=== PATIENT | male | born 1995 | race Caucasian/White ===

== ENCOUNTER 2018-01-14 21:06 | Emergency (ER) | payer OTHER ==
[~2018-01-14] VITALS: Ht 177.8 cm; Wt 83.9 kg
[2018-01-14] MEDS ORDERED: meTOprolol TARTRATE 25 MG (LOPRESSOR) TABLET PO ONE (21:30)
--- NOTE | 2018-01-14 21:34 | ED EENT ---
History of Present Illness General Chief Complaint: Facial Problems Stated Complaint: HEAD PAIN;RIGHT SIDE FACE NUMBNESS Nursing Triage Note: PT REPORTS FACIAL PAIN AND NUMBNESS FOR 3 DAYS. Source: patient Exam Limitations: no limitations History of Present Illness Date Seen by Provider: Jan 14, 2018 Time Seen by Provider: 21:31 Initial Comments To ER with right-sided facial pain and numbness for 3 days. He does not notice any drooping or weakness of the right side of his face. The pain is always there but occasionally gets worse and he describes it as a throbbing sensation that is occasionally sharp. Pain affects the forehead, cheek, and jaw. No known cause. He believes this might be secondary to a tooth problem though he does not have any certain tooth that seems to be bothering him. He states that he does have a history of migraines couple of months. Each and every migraine he states that he has scalp pain and it is tender to touch as well as facial pain with the face being tender to touch. He states that it varies from one side of the face to the other one side of the scalp he did wake up about 2 months ago in the middle of the night with sharp severe left-sided scalp pain, he awakened for a few minutes held firm pressure over this area with his hand and the pain resolved. Timing/Duration: other Severity: moderate Location: facial Associated Symptoms: No drooling, No ear drainage, facial pain/swelling (pain but no swelling) Allergies and Home Medications Allergies Coded Allergies: tree nut (Unverified Allergy, Unknown, 01/14/18) Patient Home Medication List Home Medication List Reviewed: Yes Review of Systems Constitutional: see HPI Eyes: No Symptoms Reported Ears: No Symptoms Reported Nose: no symptoms reported Mouth: no symptoms reported Throat: no symptoms reported Respiratory: no symptoms reported Cardiovascular: no symptoms reported Musculoskeletal: no symptoms reported Past Uxyerra-Wnuvhb-Mqwinp Hx Patient Social History Recent Foreign Travel: No Contact w/Someone Who Travel: No Recent Infectious Disease Expo: No Recent Hopitalizations: No Seasonal Allergies Seasonal Allergies: No Surgeries History of Surgeries: No Respiratory History of Respiratory Disorde: No Cardiovascular History of Cardiac Disorders: Yes Cardiac Disorders: Hypertension Neurological History of Neurological Disord: No Genitourinary History of Genitourinary Disor: No Gastrointestinal History of Gastrointestinal Di: No Musculoskeletal History of Musculoskeletal Dis: No Endocrine History of Endocrine Disorders: No HEENT History of HEENT Disorders: No Cancer History of Cancer: No Psychosocial History of Psychiatric Problem: No Integumentary History of Skin or Integumenta: No Blood Transfusions History of Blood Disorders: No Adverse Reaction to a Blood Tr: No Physical Exam Vital Signs Vital Signs - First Documented 01/14/18 21:23 Temp 98.0 Pulse 119 Resp 18 B/P (MAP) 150/82 (104) Pulse Ox 96 O2 Delivery Room Air General Appearance: WD/WN, no apparent distress Eyes: bilateral eye normal inspection, bilateral eye PERRL, bilateral eye EOMI Ears: bilateral ear auricle normal, bilateral ear canal normal, bilateral ear TM normal Mouth/Throat: other (multilpe teeth in a poor state of affairs with multiple caries. ) Neck: non-tender, full range of motion Respiratory: normal breath sounds, no respiratory distress, no accessory muscle use Gastrointestinal: normal bowel sounds, non tender, soft Neurologic/Psychiatric: alert, normal mood/affect, oriented x 3 Skin: normal color, warm/dry The right side of the face is tender to palpation, there is no rash, ulcers or vesicles. No erythema or edema. There is no tenderness to the maxillary gingiva or mandibular gingiva on the right. Entire HEENT exam is normal. Progress/Results/Core Measures Results/Orders Lab Results Laboratory Tests Test 01/14/18 21:29 Range/Units White Blood Count 11.5 H 4.3-11.0 10^3/uL Red Blood Count 4.97 4.35-5.85 10^6/uL Hemoglobin 15.7 13.3-17.7 G/DL Hematocrit 44 40-54 % Mean Corpuscular Volume 89 80-99 FL Mean Corpuscular Hemoglobin 32 25-34 PG Mean Corpuscular Hemoglobin Concent 35 32-36 G/DL Red Cell Distribution Width 12.8 10.0-14.5 % Platelet Count 326 130-400 10^3/uL Mean Platelet Volume 10.3 7.4-10.4 FL Neutrophils (%) (Auto) 54 42-75 % Lymphocytes (%) (Auto) 38 12-44 % Monocytes (%) (Auto) 6 0-12 % Eosinophils (%) (Auto) 1 0-10 % Basophils (%) (Auto) 1 0-10 % Neutrophils # (Auto) 6.2 1.8-7.8 X 10^3 Lymphocytes # (Auto) 4.4 H 1.0-4.0 X 10^3 Monocytes # (Auto) 0.7 0.0-1.0 X 10^3 Eosinophils # (Auto) 0.2 0.0-0.3 10^3/uL Basophils # (Auto) 0.1 0.0-0.1 10^3/uL Sodium Level 139 135-145 MMOL/L Potassium Level 4.2 3.6-5.0 MMOL/L Chloride Level 106 98-107 MMOL/L Carbon Dioxide Level 21 21-32 MMOL/L Anion Gap 12 5-14 MMOL/L Blood Urea Nitrogen 15 7-18 MG/DL Creatinine 1.02 0.60-1.30 MG/DL Estimat Glomerular Filtration Rate > 60 BUN/Creatinine Ratio 15 Glucose Level 110 H 70-105 MG/DL Calcium Level 9.6 8.5-10.1 MG/DL Total Bilirubin 0.6 0.1-1.0 MG/DL Aspartate Amino Transf (AST/SGOT) 26 5-34 U/L Alanine Aminotransferase (ALT/SGPT) 42 0-55 U/L Alkaline Phosphatase 104 40-136 U/L Total Protein 7.9 6.4-8.2 GM/DL Albumin 4.3 3.2-4.5 GM/DL My Orders Orders - JULIO CESAR BERNARDO APRN Ct Head Wo (01/14/18 21:30) Cbc With Automated Diff (01/14/18 21:30) Comprehensive Metabolic Panel (01/14/18 21:30) Metoprolol Tartrate (Ir) Tab (Lopressor (01/14/18 21:30) Ibuprofen Tablet (Motrin Tablet) (01/14/18 22:00) Medications Given in ED Current Medications Medications Dose Ordered Sig/Jennifer Route Start Time Stop Time Status Last Admin Dose Admin Metoprolol Tartrate 25 mg ONCE ONCE PO 01/14/18 21:30 01/14/18 21:31 DC 01/14/18 21:46 25 MG Vital Signs/I&O Vital Sign - Last 12Hours 01/14/18 21:23 Temp 98.0 Pulse 119 Resp 18 B/P (MAP) 150/82 (104) Pulse Ox 96 O2 Delivery Room Air Blood Pressure Mean: 104 Departure Communication (Admissions) Family Conversation I discussed with him this could be an atypical migraine given his history versus something like trigeminal neuralgia. I'll give him a short course of Ultram and discharged to home with outpatient follow-up. Progress Notes NAME: MIRTA SPARKS [facility] REC#: [id number] PT STATUS: REG ER : 1995 PHYSICIAN: JULIO CESAR BERNARDO APRN ADMIT DATE: 01/14/18/ER Draft Date of Exam:01/14/18 CT HEAD WO Clinical indication: Patient reports facial pain and numbness on the right side for 3 days. Exam: Axial CT scan of the brain performed without IV contrast. Comparison: None. Findings: There is no evidence of acute cerebral infarct, intracranial hemorrhage, or gross mass effect. The brain parenchymal volume appears appropriate for patient's age. There is normal moses-white matter distinction. There is no significant midline shift or herniation. There is no evidence of hydrocephalus. The basal cisterns are unremarkable. The skull, extracranial soft tissue, and orbits are unremarkable. There is mild mucosal thickening involving left maxillary sinus, ethmoid sinus, and frontal sinus. Temporal bones show no significant abnormality. Impression: Mild paranasal sinus disease. Otherwise unremarkable CT scan of the brain. Dictated on workstation # [id number] Dict: 01/14/18 2146 Trans: 01/14/18 215 [facility] [id number] Interpreted by: ALDEN WOLFE MD Electronically signed by: Impression Impression: Primary Impression: Hypertension Additional Impressions: Tachycardia Right sided facial pain Disposition: 01 HOME, SELF-CARE Condition: Stable Departure-Patient Inst. Decision time for Depature: 21:59 Referrals: NO,LOCAL PHYSICIAN (PCP) Primary Care Physician Patient Instructions: NO INSTRUCTIONS GIVEN Add. Discharge Instructions: 1. Follow-up with your doctor within 48 hours (call tomorrow at 8 am to make an appointment) to discuss treatment of your high blood pressure and for further evaluation of this facial pain. That workup may include an MRI of the brain. 2. Return to ER for any worsening symptoms 3. All discharge instructions reviewed with patient and/or family. Voiced understanding. Work/School Note: [employer] JULIO CESAR BERNARDO APRN Jan 14, 2018 21:34
[2018-01-14 21:37] LABS: BASOPHILS # (AUTO) 0.1 10^3/uL (0.0-0.1); BASOPHILS % (AUTO) 1 % (0-10); EOSINOPHILS # (AUTO) 0.2 10^3/uL (0.0-0.3); EOSINOPHILS % (AUTO) 1 % (0-10); HEMATOCRIT 44 % (40-54); HEMOGLOBIN 15.7 G/DL (13.3-17.7); LYMPHOCYTES # (AUTO) 4.4 X 10^3 (1.0-4.0); LYMPHOCYTES % (AUTO) 38 % (12-44); MEAN CORPUSCULAR HEMOGLOBIN 32 PG (25-34); MEAN CORPUSCULAR HGB CONC 35 G/DL (32-36); MEAN CORPUSCULAR VOLUME 89 FL (80-99); MEAN PLATELET VOLUME 10.3 FL (7.4-10.4); MONOCYTES # (AUTO) 0.7 X 10^3 (0.0-1.0); MONOCYTES % (AUTO) 6 % (0-12); NEUTROPHILS # (AUTO) 6.2 X 10^3 (1.8-7.8); NEUTROPHILS % (AUTO) 54 % (42-75); PLATELET COUNT 326 10^3/uL (130-400); RED BLOOD COUNT 4.97 10^6/uL (4.35-5.85); RED CELL DISTRIBUTION WIDTH 12.8 % (10.0-14.5); WHITE BLOOD COUNT 11.5 10^3/uL (4.3-11.0)
--- NOTE | 2018-01-14 21:51 | Diagnostic Imaging Report ---
Clinical indication: Patient reports facial pain and numbness on the right side for 3 days. Exam: Axial CT scan of the brain performed without IV contrast. Comparison: None. Findings: There is no evidence of acute cerebral infarct, intracranial hemorrhage, or gross mass effect. The brain parenchymal volume appears appropriate for patient's age. There is normal moses-white matter distinction. There is no significant midline shift or herniation. There is no evidence of hydrocephalus. The basal cisterns are unremarkable. The skull, extracranial soft tissue, and orbits are unremarkable. There is mild mucosal thickening involving left maxillary sinus, ethmoid sinus, and frontal sinus. Temporal bones show no significant abnormality. Impression: Mild paranasal sinus disease. Otherwise unremarkable CT scan of the brain. Dictated by: Dictated on workstation # [id number]
[2018-01-14 21:54] LABS: ALANINE AMINOTRANSFERASE 42 U/L (0-55); ALBUMIN 4.3 GM/DL (3.2-4.5); ALKALINE PHOSPHATASE 104 U/L (40-136); BILIRUBIN,TOTAL 0.6 MG/DL (0.1-1.0); BUN/CREATININE RATIO 15; CALCIUM 9.6 MG/DL (8.5-10.1); CARBON DIOXIDE 21 MMOL/L (21-32); CHLORIDE 106 MMOL/L (98-107); CREATININE SERUM 1.02 MG/DL (0.60-1.30); GFR ESTIMATED > 60; GLUCOSE 110 MG/DL (70-105); POTASSIUM 4.2 MMOL/L (3.6-5.0); SODIUM 139 MMOL/L (135-145); TOTAL PROTEIN 7.9 GM/DL (6.4-8.2)
[2018-01-14] MEDS ORDERED: IBUPROFEN 800 MG (MOTRIN) TAB PO ONE (22:00)
[2018-01-14] MEDS ORDERED: RX-TRAMADOL 50 MG (ULTRAM) TAB PPK#4 PO STA (22:31)
[2018-01-14 22:40] VITALS: BP 143/83
== END 2018-01-14 22:40 | disposition home or self-care (01) ==
LOC: ER 21:09
DX: R51 Headache (principal); R00.0 Tachycardia, unspecified; I10 Essential (primary) hypertension
CPT/HCPCS: 36415; 70450; 80053; 85025

== ENCOUNTER 2018-01-26 23:20 | Emergency (ER) | payer OTHER ==
[~2018-01-26] VITALS: Ht 177.8 cm; Wt 83.9 kg
[2018-01-27] MEDS ORDERED: ORPHENADRINE 60 MG/2 ML (NORFLEX) AMP IM STA (01:23)
[2018-01-27] MEDS ORDERED: KETOROLAC 60 MG/2 ML VIAL IM STA (01:23)
[2018-01-27] MEDS ORDERED: METO-352 PO (01:28)
--- NOTE | 2018-01-27 01:28 | ED Headache ---
General Chief Complaint: Head/Cervical Problems Stated Complaint: ZAVALETA X 2WKS Nursing Sepsis Screen: No Definite Risk Source: patient, old records History of Present Illness Date Seen by Provider: Jan 27, 2018 Time Seen by Provider: 01:00 Initial Comments PT ARRIVES VIA POV C/O "HEADACHE-MIGRAINE" X 2 WEEKS PAIN IS IN RIGHT MUSLIM AND RADIATES TO FOREHEAD AND RIGHT OCCIPITAL AREA. OCCASIONALLY IT IS ON TOP OF HEAD WELL NOTHING WORSENS OR IMPROVES PAIN NO VISION CHANGES--PT WEARS GLASSES, BUT HAS NOT SEEN EYE DR IN YEARS NO FEVER NO RECENT ILLNESS/URI/SINUS SYMPTOMS NO NECK PAIN OR STIFFNESS OCCASIONALLY GETS SLIGHTLY NAUSEATED AND DIZZY FOR A FEW SECONDS AND GOES AWAY-- NO SYMPTOMS NOW PT SEEN HERE 01/14/18 FOR THIS SAME COMPLAINT. AT THAT TIME HE STATED HIS HEADACHE HAD BEEN GOING ON FOR A COUPLE OF MONTHS AND HAD RIGHT FACIAL PAIN X [address] HEAD WERE DOWN AND WERE UNREMARKABLE EXCEPT FOR MINIMAL SINUS DISEASE. BP WAS 150/82 AT THAT TIME--WAS GIVEN A DOSE OF METOPROLOL IN ER PT WAS GIVEN MOTRIN IN ER AND A TAKE HOME PACK OF ULTRAM--STATES IT HELPED ALOT , HAS NOT HAD ANY IN A WEEK HAS NOT TAKEN ANYTHING ELSE FOR PAIN AT ANY TIME. STATES "MY SISTER AND MOTHER AND HER DAD AND HER GRANDPA ALL LIVE WITH THIS SAME THING" HAS NOT ATTEMPTED TO SEEK CARE FOR THIS PROBLEM UNTIL THESE 2 VISITS. 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 PT SELF DC'D THEM IN 2016, AFTER ONLY TAKING THEM A FEW MONTHS. PT HAS NOT SEEN A DR FOR BLOOD PRESSURE SINCE THEN PLANS ON ESTABLISHING AT [facility] Allergies and Home Medications Allergies Coded Allergies: tree nut (Unverified Allergy, Unknown, 01/14/18) Home Medications Metoprolol Succinate 50 Mg Tab.er.24h, 50 MG PO DAILY Prescribed by: MESSI MCFARLANE on 01/27/18 0128 Patient Home Medication List Home Medication List Reviewed: Yes Constitutional: see HPI Eyes: No Symptoms Reported Ears, Nose, Mouth, Throat: no symptoms reported Respiratory: no symptoms reported Cardiovascular: no symptoms reported Gastrointestinal: see HPI Genitourinary: no symptoms reported Musculoskeletal: no symptoms reported Skin: no symptoms reported Psychiatric/Neurological: See HPI Past Hzzjcbs-Neogzt-Tmjohi Hx Patient Social History Alcohol Use: Denies Use Recreational Drug Use: No Smoking Status: Never a Smoker Recent Foreign Travel: No Contact w/Someone Who Travel: No Recent Infectious Disease Expo: No Recent Hopitalizations: No Physical Abuse: No Sexual Abuse: No Seasonal Allergies Seasonal Allergies: No Surgeries History of Surgeries: No Respiratory History of Respiratory Disorde: No Cardiovascular History of Cardiac Disorders: Yes (DX AGE 20, SELF DC'D MEDICATIONS 2016, AFTER ONLY TAKING THEM FOR A SHORT PERIOD OF TIME. ) Cardiac Disorders: Hypertension Neurological History of Neurological Disord: No Genitourinary History of Genitourinary Disor: No Gastrointestinal History of Gastrointestinal Di: No Musculoskeletal History of Musculoskeletal Dis: No Endocrine History of Endocrine Disorders: No HEENT History of HEENT Disorders: No Cancer History of Cancer: No Psychosocial History of Psychiatric Problem: No Suicide Risk Score: 0 Integumentary History of Skin or Integumenta: No Blood Transfusions History of Blood Disorders: No Adverse Reaction to a Blood Tr: No Physical Exam Vital Signs Vital Signs - First Documented 01/27/18 00:33 Temp 98.2 Pulse 94 Resp 18 B/P (MAP) 155/88 (110) Pulse Ox 96 Capillary Refill : Less Than 3 Seconds General Appearance: no apparent distress, obese, other (MALODOROUS) HEENT: PERRL/EOMI, normal ENT inspection, TMs normal, pharynx normal, other ( NO FACIAL OR SINUS OR TEMPORAL ARTERY TENDERNESS. NO TMJ TENDERNESS. NO TRISMUS) Neck: non-tender, full range of motion, supple, normal inspection Cardiovascular: normal peripheral pulses, regular rate, rhythm, no edema, no JVD, no murmur Respiratory: normal breath sounds, no respiratory distress, no accessory muscle use Gastrointestinal: soft Back: normal inspection Extremities: normal range of motion, non-tender, normal inspection, no pedal edema, no calf tenderness, normal capillary refill, other (DTR'S INTACT IN ALL EXTREMITIES) Psychiatric: alert, oriented x 3 Crainal Nerves: normal hearing, normal speech, PERRL Coordination/Gait: normal gait Motor/Sensory: no motor deficit, no sensory deficit Reflexes: 2+ Bicep (R), 2+ Bicep (L), 2+ Knee (R), 2+ Knee (L) Skin: normal color, warm/dry Progress/Results/Core Measures Results/Orders My Orders Orders - MESSI MCFARLANE DO Ketorolac Injection (Toradol Injection) (01/27/18 01:23) Metoprolol Succinate (Xl) Tab (Toprol Xl (01/27/18 01:30) Orphenadrine Injection (Norflex Injectio (01/27/18 01:23) Vital Signs/I&O Vital Sign - Last 12Hours 01/27/18 01/27/18 01/27/18 01/27/18 00:33 02:09 02:10 02:30 Temp 98.2 98.2 98.2 Pulse 94 92 Resp 18 18 B/P (MAP) 155/88 (110) 144/81 Pulse Ox 96 99 Blood Pressure Mean: 110 Progress Note : Progress Note SYMPTOMS IMPROVED AND BP DOWN AT DISMISSAL Departure Impression Impression: Primary Impression: Right-sided headache Additional Impression: HTN (hypertension) Disposition: 01 HOME, SELF-CARE Condition: Improved Departure-Patient Inst. Referrals: [facility] Patient Instructions: Controlling Your Blood Pressure Through Lifestyle, Headache, Adult (DC), High Blood Pressure (DC) Add. Discharge Instructions: LOW SODIUM DIET--LESS THAN 2 GRAMS OF SODIUM A DAY TYLENOL AND MOTRIN NEEDED FOR HEADACHE FOLLOW UP WITH [facility] THIS WEEK FOR FURTHER CARE All discharge instructions reviewed with patient and/or family. Voiced understanding. Scripts Metoprolol Succinate (Toprol Xl) 50 Mg Tab.er.24h 50 MG PO DAILY, #10 TAB Prov: MESSI MCFARLANE DO 01/27/18 MESSI MCFARLANE DO Jan 27, 2018 01:28
[2018-01-27] MEDS ORDERED: meTOproloL SUCCINATE 50 MG (TOPROL XL) TAB PO SCH (01:30)
[2018-01-27 02:30] VITALS: BP 144/81
== END 2018-01-27 02:30 | disposition home or self-care (01) ==
LOC: EDUNIT# 23:20 → ER 23:22
DX: R51 Headache (principal); I10 Essential (primary) hypertension
CPT/HCPCS: 96372; 99284

== ENCOUNTER 2018-04-22 18:28 | Inpatient (IN) | payer OTHER ==
[~2018-04-22] VITALS: Ht 177.8 cm; Wt 148.0 kg
[~2018-04-22 18:28] MED LIST: METO-352 PO
[2018-04-22] MEDS ORDERED: NS IV 1000 ML 1,000 ML IV ONE (19:16)
[2018-04-22 19:46] LABS: BASOPHILS % (AUTO) 0 % (0-10); EOSINOPHILS % (AUTO) 0 % (0-10); HEMATOCRIT 45 % (40-54); HEMOGLOBIN 15.7 G/DL (13.3-17.7); LYMPHOCYTES # (AUTO) 1.9 X 10^3 (1.0-4.0); LYMPHOCYTES % (AUTO) 12 % (12-44); MEAN CORPUSCULAR HEMOGLOBIN 31 PG (25-34); MEAN CORPUSCULAR HGB CONC 35 G/DL (32-36); MEAN CORPUSCULAR VOLUME 88 FL (80-99); MEAN PLATELET VOLUME 10.5 FL (7.4-10.4); MONOCYTES # (AUTO) 1.1 X 10^3 (0.0-1.0); MONOCYTES % (AUTO) 8 % (0-12); NEUTROPHILS # (AUTO) 11.9 X 10^3 (1.8-7.8); NEUTROPHILS % (AUTO) 80 % (42-75); PLATELET COUNT 301 10^3/uL (130-400); RED CELL DISTRIBUTION WIDTH 12.9 % (10.0-14.5)
[2018-04-22 19:52] LABS: BILIRUBIN,URINE NEGATIVE (NEGATIVE); CLARITY,URINE VERY CLOUDY; COLOR,URINE YELLOW; GLUCOSE, URINE (UA) NEGATIVE (NEGATIVE); KETONES,URINE NEGATIVE (NEGATIVE); LEUKOCYTE ESTERASE ,URINE 1+ (NEGATIVE); NITRITE,URINE NEGATIVE (NEGATIVE); PH,URINE 5 (5-9); PROTEIN,URINE 1+ (NEGATIVE); UROBILINOGEN,URINE NORMAL (NORMAL)
[2018-04-22 19:56] LABS: BACTERIA,URINE MODERATE /HPF; RBC,URINE 0-2 /HPF
[2018-04-22 19:56] LABS: PROTHROMBIN TIME PATIENT 13.4 SEC (12.2-14.7)
[2018-04-22 20:04] LABS: ALANINE AMINOTRANSFERASE 37 U/L (0-55); ALBUMIN 4.6 GM/DL (3.2-4.5); ALKALINE PHOSPHATASE 101 U/L (40-136); BUN/CREATININE RATIO 9; CALCIUM 9.5 MG/DL (8.5-10.1); CARBON DIOXIDE 22 MMOL/L (21-32); CHLORIDE 104 MMOL/L (98-107); CREATININE SERUM 1.09 MG/DL (0.60-1.30); GFR ESTIMATED > 60; GLUCOSE 96 MG/DL (70-105); POTASSIUM 4.3 MMOL/L (3.6-5.0); SODIUM 138 MMOL/L (135-145)
[2018-04-22 20:07] LABS: BAND NEUTROPHILS 0 %; BASOPHILS % (MANUAL) 0 %; EOSINOPHILS % (MANUAL) 0 %; LYMPHOCYTES % (MANUAL) 19 %; MONOCYTES % (MANUAL) 5 %; NEUTROPHILS % (MANUAL) 76 %
[2018-04-22 20:08] LABS: RBC MORPH NORMAL
[2018-04-22] MEDS ORDERED: DOXYCYCLINE INJECTION 100 MG in NS (IVPB) 100 ML IV ONE (20:15)
[2018-04-22] MEDS ORDERED: cefTRIAXone INJECTION 1,000 MG in NS (IVPB) 50 ML IV ONE (20:15)
--- NOTE | 2018-04-22 20:18 | Diagnostic Imaging Report ---
INDICATION: Red bumps on hands for about a week. Itching, body pain, back pain, neck pain. EXAMINATION: Chest, 04/22/2018. FINDINGS: Upright portable chest demonstrates no evidence for cardiomegaly. The pulmonary vasculature is unremarkable. There are no infiltrates or effusions. There is no pneumothorax. IMPRESSION: No acute process. Dictated by: Dictated on workstation # [id number]
--- NOTE | 2018-04-22 21:30 | ED General ---
General Chief Complaint: Abdominal/GI Problems Stated Complaint: BUMPS ON HANDS,THROWING UP BLOOD,FREQUENT BOWEL MO Nursing Triage Note: pt states he began having red bumps on his hands about a week ago. bumps were itchy at first, but pt states no longer itchy. pt stated he began v/d this am, and having severe body pain, [place], and upper back and neck pain. pt stated he feels like he can hardly stay awake. pt states he threw up blood at around 1600 today. Nursing Sepsis Screen: Possible Severe Sepsis Risk History of Present Illness Date Seen by Provider: Apr 22, 2018 Time Seen by Provider: 19:15 Initial Comments This 22-year-old young man presents to the emergency room with fever, vomiting, and diarrhea. He has had a few episodes of vomiting and 11 episodes of diarrhea this evening. He feels very drowsy. He is tachycardic and febrile upon presentation. He has headache, upper back pain, and neck stiffness. He has some mild diffuse abdominal discomfort. He also has a circular target-like rash on the hands bilaterally including the palmar aspect. Rash was initially pruritic but is now painful. He denies any known tick bites but states take bites are possible based on outdoor exposure. He states heart rate at home was noted to be 126 before arrival. He also reports having some splotchy red color in his emesis which she thinks might have been blood. Patient notes he has not taken his blood pressure medications in a week because he left them at his cousin's house. He has not been taking any medications for his symptoms. His primary care providers Zachary Fernández at [facility]. Allergies and Home Medications Allergies Coded Allergies: tree nut (Unverified Allergy, Unknown, 01/14/18) Home Medications Metoprolol Succinate 50 Mg Tab.er.24h, 50 MG PO DAILY Prescribed by: MESSI MCFARLANE on 01/27/18 0128 Patient Home Medication List Home Medication List Reviewed: Yes Review of Systems Constitutional: see HPI EENTM: no symptoms reported Respiratory: cough Cardiovascular: chest pain Gastrointestinal: see HPI Genitourinary: see HPI Musculoskeletal: see HPI Skin: see HPI Psychiatric/Neurological: See HPI Hematologic/Lymphatic: No Symptoms Reported Immunological/Allergic: no symptoms reported Past Jbauaen-Fwtcww-Pmgbpr Hx Patient Social History Alcohol Use: Occasionally Uses Recreational Drug Use: No Type Used: Smokeless Tobacco Recent Foreign Travel: No Contact w/Someone Who Travel: No Recent Infectious Disease Expo: No Recent Hopitalizations: No Seasonal Allergies Seasonal Allergies: No Past Medical History Surgeries: No Respiratory: No Cardiac: Yes Hypertension Neurological: No Reproductive Disorders: No Genitourinary: No Gastrointestinal: No Musculoskeletal: No Endocrine: No HEENT: No Cancer: No Psychosocial: No Integumentary: No Blood Disorders: No Adverse Reaction/Blood Tranf: No Physical Exam-Suspected Sepsis Physical Exam Vital Signs Vital Signs - First Documented 04/22/18 04/22/18 19:05 22:37 Temp 101.4 Pulse 128 Resp 20 B/P (MAP) 124/104 (111) Pulse Ox 96 O2 Delivery Room Air Capillary Refill : Less Than 3 Seconds Blood Pressure Mean: 111 General Appearance: WD/WN, Mild Distress HEENT: PERRL/EOMI, Normal ENT Inspection, Pharynx Normal Neck: Full Range of Motion, Normal Inspection, Non Tender, Supple, Other (No nuchal rigidity or tenderness) Respiratory: Lungs Clear, Normal Breath Sounds, No Accessory Muscle Use, No Respiratory Distress Cardiovascular: No Edema, No Murmur, Tachycardia Gastrointestinal: Normal Bowel Sounds, Soft, Tenderness (Minimal, diffuse) Extremity: Normal Inspection, No Pedal Edema Neurologic/Psychiatric: Alert, Oriented x3, No Motor/Sensory Deficits, Normal Mood/Affect, pickle pumper II-XII Norm as Tested Skin: normal color, rash (Subcentimeter target-shaped lesions primarily on the hands. Lesions mark) Focused Exam Lactate Level 04/22/18 19:30: Lactic Acid Level 1.39 Lactic Acid Level Progress/Results/Core Measures Suspected Sepsis Recent Fever Within 48 Hours: Yes Infection Criteria Present: Suspected New Infection New/Unexplained Altered Menta: Yes Sepsis Screen: Possible Severe Sepsis Risk SIRS Temperature:101.4 Pulse: 128 Respiratory Rate: Laboratory Tests 04/22/18 19:30: White Blood Count 15.0H 04/23/18 05:20: White Blood Count 12.8H Blood Pressure 124 /104 Mean: 111 04/22/18 19:30: Lactic Acid Level 1.39 Laboratory Tests 04/22/18 19:30: Creatinine 1.09, INR Comment 1.0, Platelet Count 301, Total Bilirubin 1.0 04/23/18 05:20: Creatinine 0.97, Platelet Count 228, Total Bilirubin 0.9 Results/Orders Lab Results Laboratory Tests Test 04/22/18 19:25 04/22/18 19:30 04/22/18 20:25 04/23/18 05:20 Range/Units Urine Color YELLOW Urine Clarity VERY CLOUDY H Urine pH 5 5-9 Urine Specific [place] 1.020 1.016-1.022 Urine Protein 1+ H NEGATIVE Urine Glucose (UA) NEGATIVE NEGATIVE Urine Ketones NEGATIVE NEGATIVE Urine Nitrite NEGATIVE NEGATIVE Urine Bilirubin NEGATIVE NEGATIVE Urine Urobilinogen NORMAL NORMAL MG/DL Urine Leukocyte Esterase 1+ H NEGATIVE Urine RBC (Auto) 1+ H NEGATIVE Urine RBC 0-2 /HPF Urine WBC 10-25 H /HPF Urine Squamous Epithelial Cells 10-25 H /HPF Urine Crystals NONE /LPF Urine Bacteria MODERATE H /HPF Urine Casts NONE /LPF Urine Mucus MODERATE H /LPF Urine Culture Indicated YES White Blood Count 15.0 H 12.8 H 4.3-11.0 10^3/uL Red Blood Count 5.10 4.25 L 4.35-5.85 10^6/uL Hemoglobin 15.7 13.7 13.3-17.7 G/DL Hematocrit 45 38 L 40-54 % Mean Corpuscular Volume 88 90 80-99 FL Mean Corpuscular Hemoglobin 31 32 25-34 PG Mean Corpuscular Hemoglobin Concent 35 36 32-36 G/DL Red Cell Distribution Width 12.9 12.8 10.0-14.5 % Platelet Count 301 228 130-400 10^3/uL Mean Platelet Volume 10.5 H 10.3 7.4-10.4 FL Neutrophils (%) (Auto) 80 H 73 42-75 % Lymphocytes (%) (Auto) 12 20 12-44 % Monocytes (%) (Auto) 8 7 0-12 % Eosinophils (%) (Auto) 0 0 0-10 % Basophils (%) (Auto) 0 0 0-10 % Neutrophils # (Auto) 11.9 H 9.4 H 1.8-7.8 X 10^3 Lymphocytes # (Auto) 1.9 2.5 1.0-4.0 X 10^3 Monocytes # (Auto) 1.1 H 0.9 0.0-1.0 X 10^3 Eosinophils # (Auto) 0.0 0.0 0.0-0.3 10^3/uL Basophils # (Auto) 0.0 0.0 0.0-0.1 10^3/uL Neutrophils % (Manual) 76 % Lymphocytes % (Manual) 19 % Monocytes % (Manual) 5 % Eosinophils % (Manual) 0 % Basophils % (Manual) 0 % Band Neutrophils 0 % Blood Morphology Comment NORMAL Prothrombin Time 13.4 12.2-14.7 SEC INR Comment 1.0 0.8-1.4 Activated Partial Thromboplast Time 29 24-35 SEC Sodium Level 138 138 135-145 MMOL/L Potassium Level 4.3 3.6 3.6-5.0 MMOL/L Chloride Level 104 107 98-107 MMOL/L Carbon Dioxide Level 22 19 L 21-32 MMOL/L Anion Gap 12 12 5-14 MMOL/L Blood Urea Nitrogen 10 10 7-18 MG/DL Creatinine 1.09 0.97 0.60-1.30 MG/DL Estimat Glomerular Filtration Rate > 60 > 60 BUN/Creatinine Ratio 9 10 Glucose Level 96 112 H 70-105 MG/DL Lactic Acid Level 1.39 0.50-2.00 MMOL/L Calcium Level 9.5 8.8 8.5-10.1 MG/DL Total Bilirubin 1.0 0.9 0.1-1.0 MG/DL Aspartate Amino Transf (AST/SGOT) 22 16 5-34 U/L Alanine Aminotransferase (ALT/SGPT) 37 28 0-55 U/L Alkaline Phosphatase 101 79 40-136 U/L Total Protein 8.0 6.6 6.4-8.2 GM/DL Albumin 4.6 H 3.9 3.2-4.5 GM/DL Micro Results Microbiology 04/22/18 Influenza Types A,B Antigen (DARSHAN) - Final, Complete My Orders Orders - JIA GOMEZ MD Cbc With Automated Diff (04/22/18 19:16) Comprehensive Metabolic Panel (04/22/18 19:16) Lactic Acid Analyzer (04/22/18 19:16) Blood Culture (04/22/18 19:16) Sputum Culture (04/22/18 19:16) Ua Culture If Indicated (04/22/18 19:16) Protime With Inr (04/22/18 19:16) Partial Thromboplastin Time (04/22/18 19:16) Chest 1 View, Ap/Pa Only (04/22/18 19:16) O2 (04/22/18 19:16) Saline Lock/Iv-Start (04/22/18 19:16) Saline Lock/Iv-Start (04/22/18 19:16) Vital Signs Adult Sepsis Patie Q1H (04/22/18 19:16) Remove Rings In Anticipation O (04/22/18 19:16) Saline Lock/Iv-Start (04/22/18 19:16) Ns Iv 1000 Ml (Sodium Chloride 0.9%) (04/22/18 19:16) Influenza A And B Antigens (04/22/18 19:16) Manual Differential (04/22/18 19:30) Urine Culture (04/22/18 19:25) Tick Panel With Lyme Eia (04/22/18 20:08) Ceftriaxone Injection (Rocephin Injectio (04/22/18 20:15) Doxycycline Injection (Vibramycin Inject (04/22/18 20:15) Chlamydia Trachomatis Urine (04/22/18 20:54) Neis George Dna Urine Test (04/22/18 20:54) Medications Given in ED Current Medications Medications Dose Ordered Sig/Jennifer Route Start Time Stop Time Status Last Admin Dose Admin Ceftriaxone Sodium 1000 mg/ Sodium Chloride 50 ml @ 100 mls/hr ONCE ONCE IV 04/22/18 20:15 04/22/18 20:44 DC 04/22/18 20:26 100 MLS/HR Doxycycline Hyclate 100 mg/ Sodium Chloride 100 ml @ 100 mls/hr ONCE ONCE IV 04/22/18 20:15 04/22/18 21:14 DC 04/22/18 20:30 100 MLS/HR Sodium Chloride 1,000 ml @ 0 mls/hr Q0M ONCE IV 04/22/18 19:16 04/22/18 19:19 DC 04/22/18 19:41 1,000 MLS/HR Vital Signs/I&O 04/22/18 04/22/18 04/22/18 04/22/18 19:05 22:15 22:37 23:00 Temp 101.4 99.0 102.1 Pulse 128 99 111 Resp 20 16 B/P (MAP) 124/104 (111) 124/102 121/56 Pulse Ox 96 97 98 O2 Delivery Room Air Room Air Room Air Room Air 6/04/23/18 04/23/18 04/23/18 00:00 01:00 01:21 02:00 Temp 101.9 101.0 101.2 101.6 Pulse 120 126 122 Resp 20 18 B/P (MAP) 115/56 130/58 127/59 Pulse Ox 93 96 94 O2 Delivery Room Air Room Air Room Air 04/23/18 04/23/18 04/23/18 03:00 04:00 04:00 Temp 99.1 97.7 97.7 Pulse 113 98 98 Resp 18 17 17 B/P (MAP) 123/59 149/82 149/82 (104) Pulse Ox 93 97 97 O2 Delivery Room Air Room Air Room Air Capillary Refill : Less Than 3 Seconds Blood Pressure Mean: 111 Progress Note : Progress Note Septic workup was pursued. Patient was treated with IV fluid boluses. He was found to have urinary tract infection which is the presumed source of sepsis. Patient's rash and headache also raises suspicion for tickborne illness. A tick panel was ordered. Patient received Rocephin and doxycycline for initial antibiotic management. Diagnostic Imaging Diagonstic Imaging: Xray Plain Films/CT/US/NM/MRI: chest Comments NAME: MIRTA SPARKS [facility] REC#: [id number] PT STATUS: REG ER : 1995 PHYSICIAN: JIA GOMEZ MD ADMIT DATE: 04/22/18/ER Signed Date of Exam: 04/22/18 CHEST 1 VIEW, AP/PA ONLY INDICATION: Red bumps on hands for about a week. Itching, body pain, back pain, neck pain. EXAMINATION: Chest, 04/22/2018. FINDINGS: Upright portable chest demonstrates no evidence for cardiomegaly. The pulmonary vasculature is unremarkable. There are no infiltrates or effusions. There is no pneumothorax. IMPRESSION: No acute process. Dictated by: Dictated on workstation # [id number] Dict: 04/22/182013 Trans: 04/22/182022 Interpreted by: SIMONE MA MD Electronically signed by: SIMONE MA MD 04/22/182022 Departure Communication (Admissions) Time/Spoke to Admitting Phy: 20:47 Dr. Johnson Impression Primary Impression: Sepsis Qualified Codes: A41.9 - Sepsis, unspecified organism Additional Impressions: Urinary tract infection Qualified Codes: N39.0 - Urinary tract infection, site not specified Rash of hands Nausea vomiting and diarrhea Generalized abdominal pain Disposition: ADMITTED INPATIENT Condition: Improved Admissions Decision to Admit Reason: Admit from ER (General) Decision to Admit/Date: Apr 22, 2018 Time/Decision to Admit Time: 20:08 Departure-Patient Inst. Referrals: NO,LOCAL PHYSICIAN (PCP/Family) Primary Care Physician JIA GOMEZ MD Apr 22, 2018 21:30
[2018-04-22 23:00] VITALS: BP 121/56
[2018-04-22] MEDS ORDERED: ONDANSETRON 4 MG (ZOFRAN) ORAL DISSOLVE TAB PO PRN (23:30)
[2018-04-22] MEDS ORDERED: ACETAMINOPHEN 500 MG TAB (TYLENOL) PO PRN (23:30)
[2018-04-23] VITALS (9 sets, daily range): BP systolic 115–152; BP diastolic 56–82
[2018-04-23] MEDS ORDERED: NS IV 1000 ML 1,000 ML ONE (01:12)
[2018-04-23] MEDS: NS IV 1000 ML 1,000 ML IV SCH ×4 (01:25→22:20)
[2018-04-23 05:28] LABS: BASOPHILS % (AUTO) 0 % (0-10); EOSINOPHILS % (AUTO) 0 % (0-10); HEMATOCRIT 38 % (40-54); HEMOGLOBIN 13.7 G/DL (13.3-17.7); LYMPHOCYTES # (AUTO) 2.5 X 10^3 (1.0-4.0); LYMPHOCYTES % (AUTO) 20 % (12-44); MEAN CORPUSCULAR HEMOGLOBIN 32 PG (25-34); MEAN CORPUSCULAR HGB CONC 36 G/DL (32-36); MEAN CORPUSCULAR VOLUME 90 FL (80-99); MEAN PLATELET VOLUME 10.3 FL (7.4-10.4); MONOCYTES # (AUTO) 0.9 X 10^3 (0.0-1.0); MONOCYTES % (AUTO) 7 % (0-12); NEUTROPHILS # (AUTO) 9.4 X 10^3 (1.8-7.8); NEUTROPHILS % (AUTO) 73 % (42-75); PLATELET COUNT 228 10^3/uL (130-400); RED BLOOD COUNT 4.25 10^6/uL (4.35-5.85); RED CELL DISTRIBUTION WIDTH 12.8 % (10.0-14.5); WHITE BLOOD COUNT 12.8 10^3/uL (4.3-11.0)
[2018-04-23 05:47] LABS: ALANINE AMINOTRANSFERASE 28 U/L (0-55); ALBUMIN 3.9 GM/DL (3.2-4.5); ALKALINE PHOSPHATASE 79 U/L (40-136); BILIRUBIN,TOTAL 0.9 MG/DL (0.1-1.0); BUN/CREATININE RATIO 10; CALCIUM 8.8 MG/DL (8.5-10.1); CARBON DIOXIDE 19 MMOL/L (21-32); CHLORIDE 107 MMOL/L (98-107); CREATININE SERUM 0.97 MG/DL (0.60-1.30); GFR ESTIMATED > 60; GLUCOSE 112 MG/DL (70-105); POTASSIUM 3.6 MMOL/L (3.6-5.0); SODIUM 138 MMOL/L (135-145); TOTAL PROTEIN 6.6 GM/DL (6.4-8.2)
--- NOTE | 2018-04-23 08:25 | History & Physicial (CHS) ---
HPI History of Present Illness: Source: patient, RN/MD Exam Limitations: no limitations Date seen by provider: Apr 23, 2018 Time Seen by Provider: 14:02 Attending Physician Mali Johnson DO PCP No,Local Physician Consult Date of Admission Apr 22, 2018 at 21:55 Home Medications Home Medications Reviewed patient Home Medication Reconciliation performed by pharmacy medication reconciliations photo optics technician and/or nursing. Patients Allergies have been reviewed. Allergies Coded Allergies: tree nut (Unverified Allergy, Unknown, 01/14/18) IFO-Mpafsp-Hrvefs Hx Patient Social History Marrital Status: single Alcohol Use: Regular Use Recreational Drug Use: No Smoking Status: Unknown if Ever Smoked Type Used: Smokeless Tobacco Recent Foreign Travel: No Contact w/other who traveled: No Recent Hopitalizations: No Recent Infectious Disease Expo: No Physical Abuse Screen: No Sexual Abuse: No Immunizations Up To Date Tetanus Booster (TDap): Unknown Past Medical History Morbid Obesity, BMI 46 Hypertension Family Medical History Family History: Patient reports no known family medical history. Review of Systems (CHC) Constitutional: see HPI EENTM: see HPI Respiratory: no symptoms reported Cardiovascular: no symptoms reported Gastrointestinal: see HPI Genitourinary: no symptoms reported Musculoskeletal: see HPI Skin: see HPI Psychiatric/Neurological: No Symptoms Reported Reviewed Test Results Reviewed Test Results Lab Microbiology 04/22/18 Influenza Types A,B Antigen (DARSHAN) - Final, Complete 04/22/18 19:30: Lactic Acid Level 1.39 Laboratory Tests Test 04/22/18 19:25 04/22/18 19:30 04/22/18 20:25 04/23/18 05:20 Range/Units Urine Color YELLOW Urine Clarity VERY CLOUDY H Urine pH 5 5-9 Urine Specific [place] 1.020 1.016-1.022 Urine Protein 1+ H NEGATIVE Urine Glucose (UA) NEGATIVE NEGATIVE Urine Ketones NEGATIVE NEGATIVE Urine Nitrite NEGATIVE NEGATIVE Urine Bilirubin NEGATIVE NEGATIVE Urine Urobilinogen NORMAL NORMAL MG/DL Urine Leukocyte Esterase 1+ H NEGATIVE Urine RBC (Auto) 1+ H NEGATIVE Urine RBC 0-2 /HPF Urine WBC 10-25 H /HPF Urine Squamous Epithelial Cells 10-25 H /HPF Urine Crystals NONE /LPF Urine Bacteria MODERATE H /HPF Urine Casts NONE /LPF Urine Mucus MODERATE H /LPF Urine Culture Indicated YES White Blood Count 15.0 H 12.8 H 4.3-11.0 10^3/uL Red Blood Count 5.10 4.25 L 4.35-5.85 10^6/uL Hemoglobin 15.7 13.7 13.3-17.7 G/DL Hematocrit 45 38 L 40-54 % Mean Corpuscular Volume 88 90 80-99 FL Mean Corpuscular Hemoglobin 31 32 25-34 PG Mean Corpuscular Hemoglobin Concent 35 36 32-36 G/DL Red Cell Distribution Width 12.9 12.8 10.0-14.5 % Platelet Count 301 228 130-400 10^3/uL Mean Platelet Volume 10.5 H 10.3 7.4-10.4 FL Neutrophils (%) (Auto) 80 H 73 42-75 % Lymphocytes (%) (Auto) 12 20 12-44 % Monocytes (%) (Auto) 8 7 0-12 % Eosinophils (%) (Auto) 0 0 0-10 % Basophils (%) (Auto) 0 0 0-10 % Neutrophils # (Auto) 11.9 H 9.4 H 1.8-7.8 X 10^3 Lymphocytes # (Auto) 1.9 2.5 1.0-4.0 X 10^3 Monocytes # (Auto) 1.1 H 0.9 0.0-1.0 X 10^3 Eosinophils # (Auto) 0.0 0.0 0.0-0.3 10^3/uL Basophils # (Auto) 0.0 0.0 0.0-0.1 10^3/uL Neutrophils % (Manual) 76 % Lymphocytes % (Manual) 19 % Monocytes % (Manual) 5 % Eosinophils % (Manual) 0 % Basophils % (Manual) 0 % Band Neutrophils 0 % Blood Morphology Comment NORMAL Prothrombin Time 13.4 12.2-14.7 SEC INR Comment 1.0 0.8-1.4 Activated Partial Thromboplast Time 29 24-35 SEC Sodium Level 138 138 135-145 MMOL/L Potassium Level 4.3 3.6 3.6-5.0 MMOL/L Chloride Level 104 107 98-107 MMOL/L Carbon Dioxide Level 22 19 L 21-32 MMOL/L Anion Gap 12 12 5-14 MMOL/L Blood Urea Nitrogen 10 10 7-18 MG/DL Creatinine 1.09 0.97 0.60-1.30 MG/DL Estimat Glomerular Filtration Rate > 60 > 60 BUN/Creatinine Ratio 9 10 Glucose Level 96 112 H 70-105 MG/DL Lactic Acid Level 1.39 0.50-2.00 MMOL/L Calcium Level 9.5 8.8 8.5-10.1 MG/DL Total Bilirubin 1.0 0.9 0.1-1.0 MG/DL Aspartate Amino Transf (AST/SGOT) 22 16 5-34 U/L Alanine Aminotransferase (ALT/SGPT) 37 28 0-55 U/L Alkaline Phosphatase 101 79 40-136 U/L Total Protein 8.0 6.6 6.4-8.2 GM/DL Albumin 4.6 H 3.9 3.2-4.5 GM/DL Radiology Date of Exam: 04/22/18 CHEST 1 VIEW, AP/PA ONLY INDICATION: Red bumps on hands for about a week. Itching, body pain, back pain, neck pain. EXAMINATION: Chest, 04/22/2018. FINDINGS: Upright portable chest demonstrates no evidence for cardiomegaly. The pulmonary vasculature is unremarkable. There are no infiltrates or effusions. There is no pneumothorax. IMPRESSION: No acute process. Physical Exam-(CHC) Physical Exam Vital Signs VS - Last 72 Hours, by Label 04/22/18 04/22/18 04/22/18 04/22/18 19:05 22:15 22:37 23:00 Temp 101.4 99.0 102.1 Pulse 128 99 111 Resp 20 16 B/P (MAP) 124/104 (111) 124/102 121/56 Pulse Ox 96 97 98 O2 Delivery Room Air Room Air Room Air Room Air 04/23/18 04/23/18 04/23/18 04/23/18 00:00 01:00 01:21 02:00 Temp 101.9 101.0 101.2 100.1 Pulse 120 126 Resp 20 18 B/P (MAP) 115/56 130/58 Pulse Ox 93 96 O2 Delivery Room Air Room Air 04/23/18 04/23/18 04/23/18 04/23/18 02:00 03:00 04:00 04:00 Temp 101.6 99.1 97.7 97.7 Pulse 122 113 98 98 Resp 18 18 17 17 B/P (MAP) 127/59 123/59 149/82 149/82 (104) Pulse Ox 94 93 97 97 O2 Delivery Room Air Room Air Room Air Room Air 04/23/18 04/23/18 04/23/18 04/23/18 07:56 07:59 08:00 12:00 Temp 98.3 97.9 Pulse 128 94 106 100 Resp 20 18 B/P (MAP) 141/64 (89) 132/69 (90) Pulse Ox 94 96 O2 Delivery Room Air Room Air 04/23/18 13:04 Pulse 102 Capillary Refill : Less Than 3 Seconds General Appearance: WD/WN, no apparent distress Eyes: Bilateral Eye Normal Inspection, Bilateral Eye EOMI HEENT: PERRL/EOMI, normal ENT inspection; No pale conjunctivae (R), No pale conjunctivae (L), No photophobia Neck: non-tender, full range of motion, supple, normal inspection Respiratory: chest non-tender, lungs clear, normal breath sounds, no respiratory distress, no accessory muscle use Cardiovascular: regular rate, rhythm, no edema, no gallop, no JVD, no murmur Gastrointestinal: normal bowel sounds, non tender, soft, no organomegaly, no pulsatile mass; No guarding, No rebound Rectal: deferred Back: normal inspection, no CVA tenderness, no vertebral tenderness Extremities: normal range of motion, non-tender, normal inspection, no calf tenderness, normal capillary refill Neurologic/Psychiatric: physical security manager II-XII nml as tested, no motor/sensory deficits, alert, normal mood/affect, oriented x 3 Skin: normal color, warm/dry, rash (flat macular rash on bilateral palms) Assessment/Plan Assessment/Plan Admission Dx Sepsis Urinary Tract Infection Fever Tick Bite Palmar Rash Nausea and Vomiting HTN Morbid Obesity, BMI 46 Admission Status: Inpatient Order (span 2 midnights) Reason for Inpatient Admission: treatment of admission conditions Assessment & Plan Sepsis, Urinary Tract Infection -Rocephin and Doxy started last night in ED -WBC 15 --> 12.8 -urine culture pending -pt with tick bite, tick serology pending, GC and Chlamydia also pending -pt reports feeling much improved since fevers resolved, Tmax 102.1 overnight Fever -Tmax 102.1 overnight, afebrile so far today Tick Bite -serologies pending -palmar rash could be luis [place] spotted fever, n/v symptoms could correlate with ehrlichiosis -doxycycline BID while awaiting serologies Palmar Rash -tick illness related a possibility -possible herpetic monserrat, 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 If he is able to tolerate PO today and remain fever free with stable labs, likely discharge tomorrow with PO abx, as tick serologies will take a significant amount of time to return and pt can be discharged on PO doxycycline if able to tolerate oral medication. Anticipate 2-3 nights hospitalization total for evaluation and stabilization. CODE STATUS: FULL CODE Clinical Quality Measures DVT/VTE Risk/Contraindication: Risk Factor Score Per Nursin RFS Level Per Nursing on Admit: 4+=Very High Copy Copies To 1: [facility]/MALI MATOS DO Apr 23, 2018 08:25
[2018-04-23] MEDS ORDERED: MELO-170 PO (09:22)
[2018-04-23] MEDS ORDERED: METO-333 PO (09:22)
[2018-04-23] MEDS: DOXYCYCLINE INJECTION 100 MG in NS (IVPB) 100 ML IV SCH ×2 (09:33→21:21)
[2018-04-23] MEDS ORDERED: ENOXAPARIN 40 MG/0.4 ML (LOVENOX) SYR SC SCH (16:00)
[2018-04-23] MEDS ORDERED: HYDROcodone/APAP 5 MG/325 MG (LORTAB) TAB PO PRN (16:00)
[2018-04-23] MEDS: ENOXAPARIN 40 MG/0.4 ML (LOVENOX) SYR SC SCH ×2 (16:15→16:25)
[2018-04-23] MEDS ORDERED: CATHETER FLUSH 10 ML SYR IV PRN (16:15)
[2018-04-23] MEDS ORDERED: NON-FORMULARY MEDICATION 1 EA EA (Meloxicam (Mobic) 7.5 MG) PO SCH (21:00)
[2018-04-23] MEDS ORDERED: cefTRIAXone INJECTION 1,000 MG in NS (IVPB) 50 ML IV SCH (21:00)
[2018-04-23] MEDS: MELOXICAM 7.5 MG (MOBIC) TABLET PO SCH (21:23)
[2018-04-23] MEDS: meTOprolol TARTRATE 25 MG (LOPRESSOR) TABLET PO SCH (21:24)
[2018-04-24 00:47] VITALS: BP 146/68
[2018-04-24 04:37] VITALS: BP 139/65
[2018-04-24 05:52] LABS: BASOPHILS % (AUTO) 0 % (0-10); EOSINOPHILS # (AUTO) 0.2 10^3/uL (0.0-0.3); EOSINOPHILS % (AUTO) 2 % (0-10); HEMATOCRIT 39 % (40-54); HEMOGLOBIN 13.2 G/DL (13.3-17.7); LYMPHOCYTES # (AUTO) 3.6 X 10^3 (1.0-4.0); LYMPHOCYTES % (AUTO) 33 % (12-44); MEAN CORPUSCULAR HEMOGLOBIN 31 PG (25-34); MEAN CORPUSCULAR HGB CONC 34 G/DL (32-36); MEAN CORPUSCULAR VOLUME 91 FL (80-99); MEAN PLATELET VOLUME 10.6 FL (7.4-10.4); MONOCYTES # (AUTO) 1.1 X 10^3 (0.0-1.0); MONOCYTES % (AUTO) 10 % (0-12); NEUTROPHILS # (AUTO) 5.9 X 10^3 (1.8-7.8); NEUTROPHILS % (AUTO) 54 % (42-75); PLATELET COUNT 232 10^3/uL (130-400); RED BLOOD COUNT 4.29 10^6/uL (4.35-5.85); RED CELL DISTRIBUTION WIDTH 12.9 % (10.0-14.5); WHITE BLOOD COUNT 10.8 10^3/uL (4.3-11.0)
[2018-04-24] MEDS: ENOXAPARIN 40 MG/0.4 ML (LOVENOX) SYR SC SCH (06:06)
[2018-04-24 06:08] LABS: ALANINE AMINOTRANSFERASE 30 U/L (0-55); ALBUMIN 3.7 GM/DL (3.2-4.5); ALKALINE PHOSPHATASE 108 U/L (40-136); BILIRUBIN,TOTAL 0.5 MG/DL (0.1-1.0); BUN/CREATININE RATIO 9; CALCIUM 8.8 MG/DL (8.5-10.1); CARBON DIOXIDE 21 MMOL/L (21-32); CHLORIDE 111 MMOL/L (98-107); CREATININE SERUM 0.86 MG/DL (0.60-1.30); GFR ESTIMATED > 60; GLUCOSE 108 MG/DL (70-105); MAGNESIUM 2.2 MG/DL (1.8-2.4); POTASSIUM 4.3 MMOL/L (3.6-5.0); SODIUM 139 MMOL/L (135-145); TOTAL PROTEIN 6.3 GM/DL (6.4-8.2)
[2018-04-24] MEDS: NS IV 1000 ML 1,000 ML IV SCH ×2 (06:08→09:11)
[2018-04-24 08:00] VITALS: BP 136/71
[2018-04-24] MEDS: MELOXICAM 7.5 MG (MOBIC) TABLET PO SCH (08:41)
[2018-04-24] MEDS: meTOprolol TARTRATE 25 MG (LOPRESSOR) TABLET PO SCH (08:41)
[2018-04-24] MEDS: DOXYCYCLINE INJECTION 100 MG in NS (IVPB) 100 ML IV SCH (08:41)
[2018-04-24 12:00] VITALS: BP 142/69
--- NOTE | 2018-04-24 13:36 | Discharge Summary ---
Diagnosis/Chief Complaint Date of Admission Apr 22, 2018 at 21:55 Date of Discharge 04/24/18 Admission Diagnosis Admission Diagnosis Sepsis Urinary Tract Infection Fever Tick Bite Palmar Rash Nausea and Vomiting HTN Morbid Obesity, BMI 46 Discharge Diagnosis Sepsis, Urinary Tract Infection -Rocephin and Doxy started last night in ED -WBC 15 --> 12.8 -urine culture pending -pt with tick bite, tick serology pending, GC and Chlamydia also pending -pt reports feeling much improved since fevers resolved, Tmax 102.1 overnight 04/24 -Day 3 doxy and rocephin -Lyme serology negative, other testing is still pending, including urine culture -afebrile for >24 hours -WBC trending down; 15 --> 12.8 --> 10.8 -will discharge on doxycycline PO BID x10 days and have pt follow up next week in office with Oliva Fernández APRN; discussed with pt that remaining tick borne illness serologies should be available at the time of that appointment Fever -Tmax 102.1 overnight, afebrile so far today 04/24 -pt afebrile >24 hours and requesting discharge Tick Bite -serologies pending -palmar rash could be luis mountain spotted fever, n/v symptoms could correlate with ehrlichiosis -doxycycline BID while awaiting serologies 04/24 -lyme negative, other serologies remain pending -no further n/v -discharge on doxycycline PO 100 mg BID x10 days -follow up in clinic next week, remaining serologic testing should be available by the time of that appt Palmar Rash -tick illness related a possibility -possible herpetic monserrat, 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 -rash appears consistent with hand, foot and mouth viral illness, which would also correlate with pt's fever -rash appears isolated to palms and finger webbing at the time of exam 04/24 -patient reports rash is nearly gone; it does appear significantly improved from yesterday -still have strong suspicion that rash was viral in nature, but at this point it does not seem relevant as it is self resolving and not causing the patient any issues; appearance seems most consistent with typical hand, foot and mouth disease palmar rash Nausea and Vomiting -resolved HTN -per hx -will restart home meds Morbid Obesity, BMI 46 Pt has done well, is tolerating PO diet and no further nausea or vomiting. He has remained afebrile for >24 hours, has a white count that is trending down and is requesting discharge. We will discharge him to home on PO doxycycline 100 mg BID, which should cover both the potential tick borne illnesses that serologies are still pending for, as well as his UTI, for which culture results are also still pending. He has an appt 04/29 with his PCP, and results currently pending should be available by the time of that appointment. Chief Complaint/HPI Chief Complaint/HPI Per ED: This 22-year-old young man presents to the emergency room with fever, vomiting, and diarrhea. He has had a few episodes of vomiting and 11 episodes of diarrhea this evening. He feels very drowsy. He is tachycardic and febrile upon presentation. He has headache, upper back pain, and neck stiffness. He has some mild diffuse abdominal discomfort. He also has a circular target-like rash on the hands bilaterally including the palmar aspect. Rash was initially pruritic but is now painful. He denies any known tick bites but states take bites are possible based on outdoor exposure. He states heart rate at home was noted to be 126 before arrival. He also reports having some splotchy red color in his emesis which she thinks might have been blood. Patient notes he has not taken his blood pressure medications in a week because he left them at his cousin's house. He has not been taking any medications for his symptoms. His primary care providers Zachary Fernández at [facility]. Discharge Summary-Simple/Stand Consultations Discharge Physical Examination Allergies: Coded Allergies: tree nut (Unverified Allergy, Unknown, 01/14/18) Vitals & I&Os Vital Sign - Last 12Hours Date Time Temp Pulse Resp B/P (MAP) Pulse Ox O2 Delivery O2 Flow Rate FiO2 04/24/18 12:00 98.1 94 20 142/69 (93) 97 Room Air Intake and Output 04/24/18 00:00 Intake Total 2720 ml Output Total 5 ml Balance 2715 ml General Appearance: Alert, Oriented X3, Cooperative, No Acute Distress HEENT: Atraumatic, EOMI, Mucous Memb Moist/Parrott Respiratory: Clear to Auscultation, Normal Air Movement Cardiovascular: Regular Rate, Normal S1, Normal S2 Abdominal: Normal Bowel Sounds, Soft, No Tenderness Extremities: No Clubbing, No Cyanosis, Normal Pulses Skin: No Significant Lesion, Other (flat macular rash on palmar surface of hands, fading compared to yesterday and not causing any discomfort) Neuro: Normal Gait, Normal Speech, Normal Tone, Sensation Intact, Cranial Nerves 3-12 NL Psych/Mental Status: Mental Status NL, Mood NL Hospital Course See final discharge diagnosis. Pending Labs GC/Chlamydia Serologies Tick Borne Illness Panel Urine Culture Radiology Reviewed Date of Exam: 04/22/18 CHEST 1 VIEW, AP/PA ONLY INDICATION: Red bumps on hands for about a week. Itching, body pain, back pain, neck pain. EXAMINATION: Chest, 04/22/2018. FINDINGS: Upright portable chest demonstrates no evidence for cardiomegaly. The pulmonary vasculature is unremarkable. There are no infiltrates or effusions. There is no pneumothorax. IMPRESSION: No acute process. Discharge Condition at discharge stable Instructions to patient/family Please see electronic discharge instructions given to patient. Discharge Medications Reviewed and agree with Discharge Medication list on patient's Discharge Instruction sheet Clinical Quality Measures DVT/VTE Risk/Contraindication: Risk Factor Score Per Nursin RFS Level Per Nursing on Admit: 4+=Very High Copy Copies To 1: [facility]/YUMIKO MATOS DO Apr 24, 2018 13:36
[2018-04-24] MEDS ORDERED: DOXY100T19 PO (13:38)
--- NOTE | 2018-04-24 13:41 | Discharge Instructions ---
Discharge [facility] Discharge Medications New, Converted or Re-Newed RX: Transmitted to Pharmacy New Medications: Doxycycline Monohydrate (Doxycycline Monohydrate) 100 Mg Tablet 100 MG PO BID for 10 Days, #20 TAB Continued Medications: Meloxicam (Mobic) 7.5 Mg Tablet 7.5 MG PO BID, TAB Metoprolol Tartrate (Metoprolol Tartrate) 25 Mg Tablet 25 MG PO BID, TAB Patient Instructions Patient Instructions -take medication as prescribed -tylenol as needed for discomfort -keep follow up appt Goal/Follow Up Appt: Oliva Fernández APRN, 04/29 at 11:40 Return to The Hospital For: chest pain or pressure, shortness of breath not relieved by rest, nausea or vomiting that lasts more than 12 hours and makes you unable to keep down medications or clear liquids, fever >101 that does not improve with tylenol, or any emergent complaints or concerns Activity & Diet Discharge Diet: Cardiac Diet Activity as Tolerated: Yes Copy Copies To 1: [facility]/YUMIKO MATOS DO Apr 24, 2018 13:41
[2018-04-24 14:08] VITALS: BP 142/69
== END 2018-04-24 14:10 | disposition home or self-care (01) | DRG 872 ==
LOC: EDUNIT# 18:28 → ER 18:30 → 4TH 21:55
PROVIDERS: ADMIT Family Medicine; ATTEND Family Medicine
DX: A41.9 Sepsis, unspecified organism (principal); N39.0 Urinary tract infection, site not specified; B08.4 Enteroviral vesicular stomatitis with exanthem; K92.0 Hematemesis; E66.01 Morbid (severe) obesity due to excess calories; Z68.41 Body mass index [BMI] 40.0-44.9, adult; R10.84 Generalized abdominal pain; I10 Essential (primary) hypertension; M25.60 Stiffness of unspecified joint, not elsewhere classified; M54.2 Cervicalgia; M54.6 Pain in thoracic spine; Z72.0 Tobacco use
CPT/HCPCS: 36415; 71045; 80053; 81000; 83605; 83735; 85007; 85025; 85027; 85610; 85730; 86618; 86666; 86668; 86757; 87040; 87088; 87491; 87591; 87804; 96361; 96365; 96367

== ENCOUNTER 2018-09-23 17:30 | Emergency (ER) | payer OTHER ==
[~2018-09-23] VITALS: Ht 175.3 cm; Wt 140.6 kg
[~2018-09-23 17:30] MED LIST changes: +DOXY100T19 PO; +MELO-170 PO; +METO-333 PO
--- OUTSIDE RECORDS SUMMARY | 2018-09-23 18:16 | XMS REPORT ---
Author Author YUMIKO GALARZA Organization [facility] Address [address] [place] [address] Care Team Providers Care Filling Hand Name Role Phone YUMIKO GALARZA Unavailable PROBLEMS Type Condition ICD9-CM Code [id number] Code Onset Dates Condition Status SNOMED Code Problem Other chronic pain G89.29 Active 52383507 Problem Essential hypertension I10 Active 79062775 ALLERGIES No Information ENCOUNTERS Encounter Location Date Diagnosis [facility] [id number] [place] [phone][address] [phone] Apr, Rash R21 [facility] [id number] [place] [address] [phone]- [phone] Apr, [facility] [id number] [place] [address] 55477- [phone] March, Pain in thoracic spine M54.6 [facility] [id number] [place] [address] 33618- 7409 March, Hyperglycemia R73.9 [place] [id number] [place] [address] 75287- 1272 March, Pain in thoracic spine M54.6 ; Other chronic pain G89.29 ; Essential hypertension I10 and Tachycardia [address] [id number] [id number] March, Dental examination V72.2 IMMUNIZATIONS No Known Immunizations SOCIAL HISTORY Never Assessed REASON FOR VISIT TCM Call/med rec PLAN OF CARE VITAL SIGNS MEDICATIONS Medication Instructions Dosage Frequency Start Date End Date Duration Status Fish Oil 1000 MG Orally Twice a day 2 capsules 12h March, Sep, 30 day(s) Not-Taking Meloxicam 7.5 MG Orally 2 times a day 1 tablet 12h March, Active Doxycycline Monohydrate 100 mg Orally twice a day 1 capsule 12h 15 Apr, 2018 Apr, Active Metoprolol Tartrate 25 MG Orally Twice a day 1 tablet with food 12h March 30 day(s) Active RESULTS No Results PROCEDURES No Known procedures INSTRUCTIONS MEDICATIONS ADMINISTERED No Known Medications MEDICAL (GENERAL) HISTORY Type Description Date Hospitalization History Migraines 01/2018 Hospitalization History UTI/sepsis 04/27
--- OUTSIDE RECORDS SUMMARY | 2018-09-23 18:16 | XMS REPORT ---
Author Author MI QUINTERO Organization [facility] Address [address] [place] [address] Care Team Providers Care Transmission Superintendent Name Role Phone MI QUINTERO Unavailable PROBLEMS Type Condition ICD9-CM Code [id number] Code Onset Dates Condition Status SNOMED Code Problem Other chronic pain G89.29 Active 77882668 Problem Essential hypertension I10 Active 73124798 ALLERGIES No Information ENCOUNTERS Encounter Location Date Diagnosis [place] [address] [address] [place] [phone]- [phone] Apr, Rash R21 [place] [id number] [place] [address] 23287- [phone] Apr, [facility] [id number] [place] [address] 20864- [phone] March, Pain in thoracic spine M54.6 [place] [id number] [place] [address] 53004- 0493 March, Hyperglycemia R73.9 [place] [address] [address] [place] [address] 38744- 8621 March, Pain in thoracic spine M54.6 ; Other chronic pain G89.29 ; Essential hypertension I10 and Tachycardia R00.0 [facility] [address] [id number] [id number] March, Dental examination V72.2 IMMUNIZATIONS No Known Immunizations SOCIAL HISTORY Never Assessed REASON FOR VISIT lab results PLAN OF CARE VITAL SIGNS MEDICATIONS Medication Instructions Dosage Frequency Start Date End Date Duration Status Fish Oil 1000 MG Orally Twice a day 2 capsules 12h March, Sep, 30 day(s) Active RESULTS No Results PROCEDURES No Known procedures INSTRUCTIONS MEDICATIONS ADMINISTERED No Known Medications MEDICAL (GENERAL) HISTORY Type Description Date Hospitalization History Migraines 01/2018 Hospitalization History UTI/sepsis 04/27
--- OUTSIDE RECORDS SUMMARY | 2018-09-23 18:16 | XMS REPORT ---
Author Author MI QUINTERO Organization [facility] Address [address] [place] [address] Care Team Providers Care Call Center Analyst Name Role Phone MI QUINTERO Unavailable PROBLEMS Type Condition ICD9-CM Code HHW97-HE Code Onset Dates Condition Status SNOMED Code Problem Other chronic pain G89.29 Active 01110944 Problem Essential hypertension I10 Active 06559320 ALLERGIES No Information ENCOUNTERS Encounter Location Date Diagnosis [place] [place] [address] [place] [address] 47586- 4771 Apr, Rash R21 [place] [id number] [place] [address] 91379- [phone] Apr, [facility] [id number] [place] [address] 30076- 8374 March, Pain in thoracic spine M54.6 [place] [id number] [place] [address] 02206- 3513 March, Hyperglycemia R73.9 [place] [address] [place] [address] 10777- 5465 March, Pain in thoracic spine M54.6 ; Other chronic pain G89.29 ; Essential hypertension I10 and Tachycardia R00.[address] [facility] [address] [id number] [id number] March, Dental examination V72.2 IMMUNIZATIONS No Known Immunizations SOCIAL HISTORY Never Assessed REASON FOR VISIT Requests return call PLAN OF CARE VITAL SIGNS MEDICATIONS Medication Instructions Dosage Frequency Start Date End Date Duration Status Metoprolol Tartrate 25 MG Orally Twice a day 1 tablet with food 12h March 30 day(s) Active RESULTS No Results PROCEDURES No Known procedures INSTRUCTIONS MEDICATIONS ADMINISTERED No Known Medications MEDICAL (GENERAL) HISTORY Type Description Date Hospitalization History Migraines 01/2018 Hospitalization History UTI/sepsis 04/27
--- OUTSIDE RECORDS SUMMARY | 2018-09-23 18:16 | XMS REPORT ---
Author Author MI QUINTERO Organization [facility] Address [address] [place] [address] Care Team Providers Care Barge Loader Name Role Phone MI QUINTERO Unavailable PROBLEMS Type Condition ICD9-CM Code MMF29-AI Code Onset Dates Condition Status SNOMED Code Problem Other chronic pain G89.29 Active 73623421 Problem Essential hypertension I10 Active 07603643 ALLERGIES No Known Allergies ENCOUNTERS Encounter Location Date Diagnosis [address] [address] [address] [place] [address] [phone] Apr, Rash R21 [place] [id number] [place] [address] [phone]- [phone] Apr, [facility] [id number] [place] [address] 98168- [phone] March, Pain in thoracic spine M54.6 [place] [id number] [place] [address] 68065- 5288 March, Hyperglycemia R73.9 [place] [id number] [place] [address] 41494- [phone] March, Pain in thoracic spine M54.6 ; Other chronic pain G89.29 ; Essential hypertension I10 and Tachycardia R00.[address] [facility] [address] [id number] [id number] March, Dental examination V72.2 IMMUNIZATIONS No Known Immunizations SOCIAL HISTORY Never Assessed REASON FOR VISIT Establish Care WB-MA, Lower back pain PLAN OF CARE Activity Details Follow Up 4 Weeks Reason:htn VITAL SIGNS Weight 333 lbs 2018-03-25 Temperature 98.4 degrees Fahrenheit 2018-03-25 Heart Rate 122 bpm 2018-03-25 Respiratory Rate 22 2018-03-25 Oximetry on room air:98 % 2018-03-25 Blood pressure systolic 130 mmHg 2018-03-25 Blood pressure diastolic 84 mmHg 2018-03-25 MEDICATIONS Medication Instructions Dosage Frequency Start Date End Date Duration Status Metoprolol Tartrate 25 MG Orally Twice a day 1 tablet with food 12h March 30 day(s) Active Meloxicam 7.5 MG Orally 2 times a day 1 tablet 12h March, Active RESULTS No Results PROCEDURES Procedure Date Ordered Result Body Site EKG, TRACING (IN-HOUSE) 2018-03-25 Normal ELECTROCARDIOGRAM, TRACING March 25, 2018 ASSAY THYROID STIM HORMONE March 25, 2018 COMPREHEN METABOLIC PANEL March 25, 2018 LIPID PANEL March 25, 2018 COMPLETE CBC W/AUTO DIFF WBC March 25, 2018 INSTRUCTIONS MEDICATIONS ADMINISTERED No Known Medications MEDICAL (GENERAL) HISTORY Type Description Date Hospitalization History Migraines 01/2018 Hospitalization History UTI/sepsis 04/27
--- OUTSIDE RECORDS SUMMARY | 2018-09-23 18:16 | XMS REPORT ---
Author Author MI QUINTERO Organization [facility] Address [address] [place] [address] Care Team Providers Care Visiting Nurse Name Role Phone MI QUINTERO Unavailable PROBLEMS Type Condition ICD9-CM Code CPM09-SW Code Onset Dates Condition Status SNOMED Code Problem Other chronic pain G89.29 Active 86917544 Problem Essential hypertension I10 Active 31147712 ALLERGIES No Known Allergies ENCOUNTERS Encounter Location Date Diagnosis [place] [id number] [place] [address] [phone]- [phone] Apr, Rash R21 [place] [id number] [place] [address] [phone]- [phone] Apr, [place] [id number] [place] [address] 88414- 8898 March, Pain in thoracic spine M54.6 [address] [address] 10256- 2841 March, Hyperglycemia R73.9 [place] [id number] [place] [address] 20143- 8959 March, Pain in thoracic spine M54.6 ; Other chronic pain G89.29 ; Essential hypertension I10 and Tachycardia R00.0 [facility] [address] [id number] [id number] March, Dental examination V72.2 IMMUNIZATIONS No Known Immunizations SOCIAL HISTORY Never Assessed REASON FOR VISIT [facility] Follow up, UTI/sepsis----DBennettRN, had gone to ER for rash on bilateral hands, spreading up arms x2-3 weeks PLAN OF CARE VITAL SIGNS Height 70 in 2018-04-29 Weight 335 lbs 2018-04-29 Temperature 98.7 degrees Fahrenheit 2018-04-29 Heart Rate 90 bpm 2018-04-29 Respiratory Rate 20 2018-04-29 BMI 48.06 kg/m2 2018-04-29 Blood pressure systolic 102 mmHg 2018-04-29 Blood pressure diastolic 70 mmHg 2018-04-29 MEDICATIONS Medication Instructions Dosage Frequency Start Date End Date Duration Status Meloxicam 7.5 MG Orally 2 times a day 1 tablet 12h March, Active Fish Oil 1000 MG Orally Twice a day 2 capsules 12h 17 Mar, 2018 Sep, 30 day(s) Not-Taking Metoprolol Tartrate 25 MG Orally Twice a day 1 tablet with food March 30 day(s) Active Doxycycline Monohydrate 100 mg Orally twice a day 1 capsule 12h 15 Apr, 2018 Apr, Active PredniSONE 20 mg Orally Once a day 2 tablets 24h 20 Apr, 2018 Apr, 05 days Active Terbinafine HCl 1 % Externally Twice a day 1 application to affected area 12h Apr, Active RESULTS No Results PROCEDURES No Known procedures INSTRUCTIONS MEDICATIONS ADMINISTERED No Known Medications MEDICAL (GENERAL) HISTORY Type Description Date Hospitalization History Migraines 01/2018 Hospitalization History UTI/sepsis 04/27
--- NOTE | 2018-09-23 19:08 | Diagnostic Imaging Report ---
EXAMINATION: Right hip radiographs, 2 views. COMPARISON: None. HISTORY: 23-year-old male, injury lifting a chair. Right hip pain. FINDINGS: The right hip is not dislocated. There is no identified acute fracture. There is no joint space loss of the right hip, osteophyte formation, or subchondral cystic change. IMPRESSION: Unremarkable radiographic assessment of the right hip. Dictated by: Dictated on workstation # [id number]
--- NOTE | 2018-09-23 19:31 | ED Lower Extremity ---
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 PT STATES HE FEELS A POP WHEN HE WALKS. STATES HIS PAIN IS A LITTLE LESS WHEN HE SITS. Nursing Sepsis Screen: No Definite Risk Source: patient Exam Limitations: no limitations History of Present Illness Date Seen by Provider: Sep 23, 2018 Time Seen by Provider: 18:30 Initial Comments This 23-year-old young man presents to the emergency room with pain in the right groin and hip region. He works at the [employer] and was moving some heavy chairs when he felt a popping sensation. He was then having difficulty lifting and pushing chairs. It hurts to walk but he is able to walk on his own power. He denies any blunt trauma of any kind. Allergies and Home Medications Allergies Coded Allergies: tree nut (Unverified Allergy, Unknown, 01/14/18) Home Medications Doxycycline Monohydrate 100 Mg Tablet, 100 MG PO BID Prescribed by: YUMIKO GALARZA on 04/24/18 1338 Meloxicam 7.5 Mg Tablet, 7.5 MG PO BID, (Reported) Metoprolol Tartrate 25 Mg Tablet, 25 MG PO BID, (Reported) Patient Home Medication List Home Medication List Reviewed: Yes Review of Systems Constitutional: no symptoms reported EENTM: no symptoms reported Respiratory: no symptoms reported Cardiovascular: no symptoms reported Gastrointestinal: no symptoms reported Genitourinary: no symptoms reported Musculoskeletal: see HPI Skin: no symptoms reported Psychiatric/Neurological: No Symptoms Reported Past Dkiucox-Dfuxbx-Rhvfuv Hx Past Med/Social Hx: Reviewed Nursing Past Med/Soc Hx Patient Social History Alcohol Use: Occasionally Uses Alcohol Beverage of Choice: Beer Recreational Drug Use: No Smoking Status: Current Everyday Smoker Type Used: Smokeless Tobacco Recent Foreign Travel: No Contact w/Someone Who Travel: No Recent Infectious Disease Expo: No Recent Hopitalizations: No Physical Abuse: No Sexual Abuse: No Immunizations Up To Date Tetanus Booster (TDap): Unknown PED Vaccines UTD: Yes Seasonal Allergies Seasonal Allergies: No Past Medical History Surgeries: No Respiratory: No Currently Using CPAP: No Currently Using BIPAP: No Cardiac: Yes Hypertension Neurological: No Reproductive Disorders: No Genitourinary: No Gastrointestinal: No Musculoskeletal: No Endocrine: No HEENT: No Cancer: No Psychosocial: Yes Anxiety Integumentary: No Blood Disorders: No Adverse Reaction/Blood Tranf: No Family Medical History Patient reports no known family medical history. Physical Exam Vital Signs Vital Signs - First Documented 09/23/18 09/23/18 17:49 19:50 Temp 97.4 Pulse 119 Resp 18 B/P (MAP) 145/80 (101) Pulse Ox 96 O2 Delivery Room Air Capillary Refill : Less Than 3 Seconds Height, Weight, BMI Height: 5'9.00" Weight: 310lbs. 6.0oz. 140.258103gb; 46.8 BMI Method:Stated General Appearance: WD/WN, no apparent distress HEENT: PERRL/EOMI, normal ENT inspection Neck: normal inspection Cardiovascular: regular rate, rhythm, no edema, no murmur Respiratory: lungs clear, normal breath sounds, no respiratory distress, no accessory muscle use Gastrointestinal: non tender, soft, other (no abdominal wall defect to suggest hernia) Hips: bilateral hip normal inspection, bilateral hip normal range of motion; right hip bone tenderness (mild tenderness on the right lateral hip and in the right groin around the adductor muscles), right hip other (no significant pain with rotation of the hip) Legs: bilateral leg non-tender, bilateral leg normal inspection, bilateral leg normal range of motion, bilateral leg no evidence of injury Knees: bilateral knee non-tender, bilateral knee normal inspection, bilateral knee normal range of motion, bilateral knee no evidence of injury Neurologic/Tendon: normal sensation, normal motor functions, normal tendon functions Neurologic/Psychiatric: psychic reader II-XII nml as tested, no motor/sensory deficits, alert, normal mood/affect, oriented x 3 Skin: normal color, warm/dry Genital exam was performed to rule out hernia. There was no bulging into the inguinal canal or scrotum or with Valsalva. No bulging in the lower abdomen to suggest abdominal wall hernia. Progress/Results/Core Measures Results/Orders My Orders Orders - JIA GOMEZ MD Hip, Right, 2 Views (09/23/18 18:40) Vital Signs/I&O 09/23/18 09/23/18 17:49 19:50 Temp 97.4 97.4 Pulse 119 106 Resp 18 18 B/P (MAP) 145/80 (101) 151/90 (110) Pulse Ox 96 96 O2 Delivery Room Air Blood Pressure Mean: 101 Progress Progress Note : Progress Note There is no evidence of inguinal hernia. No evidence of bony injury on x-ray. Symptoms were felt to be likely related to groin muscle strain. Occupational health paperwork was completed. Diagnostic Imaging Diagonstic Imaging: Xray Plain Films/CT/US/NM/MRI: hip Comments X-ray of the right hip viewed by me and report reviewed. See report below: NAME: MIRTA SPARKS [facility] REC#: [id number] PT STATUS: REG ER : 1995 PHYSICIAN: JIA GOMEZ MD ADMIT DATE: 09/23/18/ER Signed Date of Exam:09/23/18 HIP, RIGHT, 2 VIEWS EXAMINATION: Right hip radiographs, 2 views. COMPARISON: None. HISTORY: 23-year-old male, injury lifting a chair. Right hip pain. FINDINGS: The right hip is not dislocated. There is no identified acute fracture. There is no joint space loss of the right hip, osteophyte formation, or subchondral cystic change. IMPRESSION: Unremarkable radiographic assessment of the right hip. Dictated by: Dictated on workstation # [id number] Dict: 09/23/181899 Trans: 09/23/181911 [facility] [id number] Interpreted by: RENU HUMPHRIES MD Electronically signed by: RENU HUMPHRIES MD 09/23/181911 Departure Impression Primary Impression: Strain of muscle of right groin region Disposition: 01 HOME, SELF-CARE Condition: Stable Departure-Patient Inst. Decision time for Depature: 19:28 Referrals: NO,LOCAL PHYSICIAN (PCP/Family) Primary Care Physician Patient Instructions: Muscle Strain Add. Discharge Instructions: You may take ibuprofen up to 6 or milligrams every 6 hours as needed for pain. Add Tylenol (acetaminophen) up to 1000 mg every 6 hours as needed for additional pain relief. Icing in 20 minute intervals over the next 48 hours may also be helpful. Avoid strenuous pushing and pulling or heavy lifting until pain resolves. Follow-up with occupational health. Call them tomorrow for further instructions. All discharge instructions reviewed with patient and/or family. Voiced understanding. JIA GOMEZ MD Sep 23, 2018 19:31
[2018-09-23 19:50] VITALS: BP 151/90
== END 2018-09-23 19:50 | disposition home or self-care (01) ==
LOC: EDUNIT# 17:30 → ER 17:31
DX: S76.811A Strain of other specified muscles, fascia and tendons at thigh level, right thigh, initial encounter (principal); M25.551 Pain in right hip; I10 Essential (primary) hypertension; F41.9 Anxiety disorder, unspecified; F17.210 Nicotine dependence, cigarettes, uncomplicated; X50.0XXA Overexertion from strenuous movement or load, initial encounter; Y92.59 Other trade areas as the place of occurrence of the external cause
CPT/HCPCS: 73502

== ENCOUNTER 2019-03-05 21:01 | Emergency (ER) | payer OTHER ==
[~2019-03-05] VITALS: Ht 175.3 cm; Wt 147.4 kg
--- OUTSIDE RECORDS SUMMARY | 2019-03-05 21:06 | XMS REPORT ---
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 Name Role Phone MI QUINTERO Unavailable PROBLEMS Type Condition ICD9-CM Code ONM24-SD Code Onset Dates Condition Status SNOMED Code Problem Other chronic pain G89.29 Active 33204338 Problem Essential hypertension I10 Active [id number] ALLERGIES No Information ENCOUNTERS Encounter Location Date Diagnosis [facility] [id number] [place] [phone] Oct, BMI 50.0-59.9, adult Z68.43 [facility] [place] [id number] [place] [phone] Apr, Rash R21 [facility] [place] [id number] [place] [phone] Apr, [place] [id number] [place] [phone] March, Pain in thoracic spine M54.6 [facility] [place] [id number] [place] [phone] March, Hyperglycemia R73.9 [facility] [place] [id number] [place] [phone] March, Pain in thoracic spine M54.6 ; Other chronic pain G89.29 ; Essential hypertension I10 and Tachycardia R00.[address] [facility] [address] [id number] [id number] March, Dental examination V72.2 IMMUNIZATIONS No Known Immunizations SOCIAL HISTORY Never Assessed REASON FOR VISIT Triage JStrasserRN PLAN OF CARE VITAL SIGNS Height 70 in 2018-10-20 Weight 349.0 lbs 2018-10-20 Temperature 97.8 degrees Fahrenheit 2018-10-20 Heart Rate 92 bpm 2018-10-20 Respiratory Rate 20 2018-10-20 BMI 50.07 kg/m2 2018-10-20 Blood pressure systolic 126 mmHg 2018-10-20 Blood pressure diastolic 90 mmHg 2018-10-20 MEDICATIONS Medication Instructions Dosage Frequency Start Date End Date Duration Status Terbinafine HCl 1 % Externally Twice a day 1 application to affected area 12h 20 Apr, 2018 Not-Taking Metoprolol Tartrate 25 MG Orally Twice a day 1 tablet with food 12march 30 day(s) Not-Taking Meloxicam 7.5 MG Orally 2 times a day 1 tablet 12h March, Not- Taking RESULTS No Results PROCEDURES No Known procedures INSTRUCTIONS MEDICATIONS ADMINISTERED No Known Medications MEDICAL (GENERAL) HISTORY Type Description Date Hospitalization History Migraines 01/2018 Hospitalization History UTI/sepsis 04/27
[2019-03-05] MEDS ORDERED: PRD20T PO (21:25)
[2019-03-05] MEDS ORDERED: AMOX500C2 PO (21:25)
--- NOTE | 2019-03-05 21:25 | ED EENT ---
History of Present Illness General Chief Complaint: Nasal Problems Stated Complaint: SWOLLEN GUMS/BLEW NOSE AND BLOOD CAME OUT Nursing Triage Note: PT TO ED 10 W/ FAMILY FOR C/O GUM SWELLING ET BLOOD COMING FROM LT [facility]ARE WHEN HE BLEW HIS NOSE THIS EVENING. DENIES INJURY Source: patient Exam Limitations: no limitations History of Present Illness Date Seen by Provider: Mar 05, 2019 Time Seen by Provider: 21:19 Initial Comments To ER per private vehicle with reports of maxillary gums tender and swollen, nasal congestion and when blowing his nose noticed some purulent bloody material from the left side of the nostril. The symptoms for about a week. Timing/Duration: abrupt Severity: moderate Prearrival Treatment: no prearrival treatment Associated Symptoms: facial pain/swelling; No fever; nasal congestion/drainage , tooth pain Allergies and Home Medications Allergies Coded Allergies: tree nut (Unverified Allergy, Unknown, 01/14/18) Home Medications Doxycycline Monohydrate 100 Mg Tablet, 100 MG PO BID Prescribed by: YUMIKO GALARZA on 04/24/18 1338 Meloxicam 7.5 Mg Tablet, 7.5 MG PO BID, (Reported) Metoprolol Tartrate 25 Mg Tablet, 25 MG PO BID, (Reported) Patient Home Medication List Home Medication List Reviewed: Yes Review of Systems Review of Systems Constitutional: see HPI Eyes: No Symptoms Reported Ears: No Symptoms Reported Nose: see HPI, pain, bloody discharge Mouth: no symptoms reported Throat: no symptoms reported Respiratory: no symptoms reported Cardiovascular: no symptoms reported Skin: no symptoms reported Neurological: No Symptoms Reported Hematologic/Lymphatic: No Symptoms Reported Immunological/Allergic: no symptoms reported (mostly YWhitish dog) Past Azgeizu-Dswrjt-Jzgkja Hx Patient Social History Alcohol Use: Occasionally Uses Number of Drinks Today: AA Alcohol Beverage of Choice: Beer Recreational Drug Use: Yes Drug of Choice: MARIJUANA 2 WKS AGO Smoking Status: Never a Smoker Type Used: Smokeless Tobacco Recent Foreign Travel: No Contact w/Someone Who Travel: No Recent Infectious Disease Expo: No Recent Hopitalizations: No Physical Abuse: No Sexual Abuse: No Mistreated: No Fear: No Immunizations Up To Date Tetanus Booster (TDap): Unknown PED Vaccines UTD: Yes Seasonal Allergies Seasonal Allergies: No Past Medical History Surgeries: No Respiratory: No Currently Using CPAP: No Currently Using BIPAP: No Cardiac: Yes Hypertension Neurological: No Reproductive Disorders: No Genitourinary: No Gastrointestinal: No Musculoskeletal: No Endocrine: No HEENT: No Cancer: No Psychosocial: Yes Anxiety Integumentary: No Blood Disorders: No Adverse Reaction/Blood Tranf: No Family Medical History Patient reports no known family medical history. Physical Exam Vital Signs Vital Signs - First Documented 03/05/19 21:06 Temp 97.7 Pulse 124 Resp 18 B/P (MAP) 146/94 (111) Pulse Ox 94 O2 Delivery Room Air Height, Weight, BMI Height: 5'9.00" Weight: 325lbs. 6.0oz. 147.193615jt; 46.8 BMI Method:Stated General Appearance: WD/WN, no apparent distress Eyes: bilateral eye normal inspection, bilateral eye PERRL, bilateral eye EOMI Ears: bilateral ear auricle normal, bilateral ear canal normal, bilateral ear TM normal Mouth/Throat: other (maxillary gums over tooth #8 through 11 are a bit swollen and tender to palpation but there is no fluctuance or draining abscess) Neck: non-tender, full range of motion Respiratory: normal breath sounds, no respiratory distress, no accessory muscle use Neurologic/Psychiatric: alert, normal mood/affect, oriented x 3 Skin: normal color, warm/dry Progress/Results/Core Measures Results/Orders My Orders Orders - JULIO CESAR BERNARDO APRN Amoxicillin/Clavulanate Tablet (Augmenti (03/05/19 21:30) Prednisone Tablet (Deltasone Tablet) (03/05/19 21:30) Vital Signs/I&O 03/05/19 21:06 Temp 97.7 Pulse 124 Resp 18 B/P (MAP) 146/94 (111) Pulse Ox 94 O2 Delivery Room Air Blood Pressure Mean: 111 Departure Impression Primary Impression: Maxillary sinusitis, acute Qualified Codes: J01.00 - Acute maxillary sinusitis, unspecified Disposition: 01 HOME, SELF-CARE Condition: Stable Departure-Patient Inst. Decision time for Depature: 21:22 Referrals: [facility] (PCP) Primary Care Physician NO,LOCAL PHYSICIAN (Family) Primary Care Physician Patient Instructions: Sinusitis in Adults Add. Discharge Instructions: 1. Steroids and antibiotics as directed. If you need to use an [id number] decongestant such as Afrin is fine but don't use that more than twice a day for more than 3 days. You can however start using an intranasal steroid such as Flonase daily. This will help with her daily allergies as well. Follow-up with your doctor next week. All discharge instructions reviewed with patient and/or family. Voiced understanding. Scripts Prednisone (Prednisone) 20 Mg Tab 40 MG PO DAILY, #6 TAB Prov: JULIO CESAR BERNARDO APRN 03/05/19 Amoxicillin (Amoxicillin) 500 Mg Capsule 1000 MG PO TID, #60 CAP Prov: JULIO CESAR BERNARDO APRN 03/05/19 JULIO CESAR BERNARDO APRN Mar 05, 2019 21:25
[2019-03-05] MEDS ORDERED: predniSONE 20 MG TAB PO ONE (21:30)
[2019-03-05] MEDS ORDERED: AUGMENTIN 875 MG TAB (AMOXICILLIN/CLAVULANATE) PO SCH (21:30)
[2019-03-05 21:33] VITALS: BP 0/0
== END 2019-03-05 21:33 | disposition home or self-care (01) ==
LOC: EDUNIT# 21:01 → ER 21:02
DX: J01.00 Acute maxillary sinusitis, unspecified (principal); I10 Essential (primary) hypertension; F41.9 Anxiety disorder, unspecified; F12.10 Cannabis abuse, uncomplicated
CPT/HCPCS: 99283

== ENCOUNTER 2019-04-20 10:57 | Emergency (ER) | payer OTHER ==
[~2019-04-20] VITALS: Ht 180.3 cm; Wt 161.0 kg
[~2019-04-20 10:57] MED LIST changes: +AMOX500C2 PO; +PRD20T PO
--- OUTSIDE RECORDS SUMMARY | 2019-04-20 11:02 | XMS REPORT | Continuity of Care Document ---
Author Organization Unknown Address Unknown Allergies Active Description Code Type Severity Reaction Onset Reported/Identified Relationship to Patient Clinical Status Yes tree nut [id number] Drug Allergy Unknown N/A 01/14/2018 Medications There is no data. Problems Date Dx Coded Attending Type Code Diagnosis Diagnosed By 01/14/2018 JULIO CESAR BERNARDO APRN Ot I10 ESSENTIAL (PRIMARY) HYPERTENSION 01/14/2018 JULIO CESAR BERNARDO APRN Ot R00.0 TACHYCARDIA, UNSPECIFIED 01/14/2018 JULIO CESAR BERNARDO APRN Ot R51 HEADACHE 01/27/2018 MAEVE DO, MESSI K Ot I10 ESSENTIAL (PRIMARY) HYPERTENSION 01/27/2018 MAEVE DO, MESSI K Ot R51 HEADACHE 01/28/2018 MAEVE DO, MESSI K Ot I10 ESSENTIAL (PRIMARY) HYPERTENSION 01/28/2018 MAEVE DO, MESSI K Ot R51 HEADACHE 04/24/2018 YUMIKO GALARZA DO Ot A41.9 SEPSIS, UNSPECIFIED ORGANISM 04/24/2018 YUMIKO GALARZA DO Ot B08.4 ENTEROVIRAL VESICULAR STOMATITIS WITH EX 04/24/2018 BARYUMIKO PARRY DO Ot E66.01 MORBID (SEVERE) OBESITY DUE TO EXCESS CA 04/24/2018 YUMIKO GALARZA DO Ot I10 ESSENTIAL (PRIMARY) HYPERTENSION 04/24/2018 YUMIKO GALARZA DO Ot K92.0 HEMATEMESIS 04/24/2018 YUMIKO GALARZA DO E Ot M25.60 STIFFNESS OF UNSPECIFIED JOINT, NOT ELSE 04/24/2018 YUMIKO GALARZA DO Ot M54.2 CERVICALGIA 04/24/2018 YUMIKO GALARZA DO Ot M54.6 PAIN IN THORACIC SPINE 04/24/2018 YUMIKO GALARZA DO Ot N39.0 URINARY TRACT INFECTION, SITE NOT SPECIF 04/24/2018 YUMIKO GALARZA DO Ot R10.84 GENERALIZED ABDOMINAL PAIN 04/24/2018 YUMIKO GALARZA DO Ot Z68.41 BODY MASS INDEX (BMI) 40.0-44.9, ADULT 04/24/2018 YUMIKO GALARZA DO Ot Z72.0 TOBACCO USE 09/23/2018 JIA GOMEZ MD Ot F17.210 NICOTINE DEPENDENCE, CIGARETTES, UNCOMPL 09/23/2018 JIA GOMEZ MD Ot F41.9 ANXIETY DISORDER, UNSPECIFIED 09/23/2018 JIA GOMEZ MD Ot I10 ESSENTIAL (PRIMARY) HYPERTENSION 09/23/2018 JIA GOMEZ MD Ot M25.551 PAIN IN RIGHT HIP 09/23/2018 JIA GOMEZ MD Ot R10.31 RIGHT LOWER QUADRANT PAIN 09/23/2018 JIA GOMEZ MD Ot S76.811A STRAIN OF MUSC/FASC/TEND AT THIGH LEVEL, 09/23/2018 JIA GOMEZ MD Ot X50.0XXA OVEREXERTION FROM STRENUOUS MOVEMENT OR 09/23/2018 JIA GOMEZ MD T Ot Y92.[address] 09/25/2018 JIA GOMEZ MD Ot F17.210 NICOTINE DEPENDENCE, CIGARETTES, UNCOMPL 09/25/2018 JIA GOMEZ MD Ot F41.9 ANXIETY DISORDER, UNSPECIFIED 09/25/2018 JIA GOMEZ MD T Ot I10 ESSENTIAL (PRIMARY) HYPERTENSION 09/25/2018 JIA GOMEZ MD T Ot M25.551 PAIN IN RIGHT HIP 09/25/2018 JIA GOMEZ MD T Ot R10.31 RIGHT LOWER QUADRANT PAIN 09/25/2018 JIA GOMEZ MD T Ot S76.811A STRAIN OF MUSC/FASC/TEND AT THIGH LEVEL, 09/25/2018 JIA GOMEZ MD Ot X50.0XXA OVEREXERTION FROM STRENUOUS MOVEMENT OR 09/25/2018 JIA GOMEZ MD T Ot Y92.[address] 03/05/2019 JULIO CESAR BERNARDO APRN Ot F12.10 CANNABIS ABUSE, UNCOMPLICATED 03/05/2019 JULIO CESAR BERNARDO Ryan SALASN Ot F41.9 ANXIETY DISORDER, UNSPECIFIED 03/05/2019 [place] JULIO CESAR Davis APRN Ot I10 ESSENTIAL (PRIMARY) HYPERTENSION 03/05/2019 JULIO CESAR BERNARDO Ryan VILLAGRAN Ot J01.00 ACUTE MAXILLARY SINUSITIS, UNSPECIFIED 03/05/2019 BERNARDO, JULIO CESAR Davis APRN Ot R09.81 NASAL CONGESTION 03/08/2019 BERNARDOJULIO CESAR APRN Ot F12.10 CANNABIS ABUSE, UNCOMPLICATED 03/08/2019 [place] JULIO CESAR Davis APRN Ot F41.9 ANXIETY DISORDER, UNSPECIFIED 03/08/2019 BERNARDO, JULIO CESAR Davis APRN Ot I10 ESSENTIAL (PRIMARY) HYPERTENSION 03/08/2019 BERNARDO, JULIO CESAR Davis APRN Ot J01.00 ACUTE MAXILLARY SINUSITIS, UNSPECIFIED 03/08/2019 BERNARDOJULIO CESAR APRN Ot R09.81 NASAL CONGESTION Procedures There is no data. Results Test Result Range Complete blood count (CBC) with automated white blood cell (WBC) differential - 01/14/18 21:29 Blood leukocytes automated count (number/volume) 11.5 10*3/uL 4.3-11.0 Blood erythrocytes automated count (number/volume) 4.97 10*6/uL 4.35-5.85 Venous blood hemoglobin measurement (mass/volume) 15.7 g/dL 13.3-17.7 Blood hematocrit (volume fraction) 44 % 40-54 Automated erythrocyte mean corpuscular volume 89 [foz_us] 80-99 Automated erythrocyte mean corpuscular hemoglobin (mass per erythrocyte) 32 pg 25-34 Automated erythrocyte mean corpuscular hemoglobin concentration measurement (mass/volume) 35 g/dL 32-36 Automated erythrocyte distribution width ratio 12.8 % 10.0- 14.5 Automated blood platelet count (count/volume) 326 10*3/uL 130-400 Automated blood platelet mean volume measurement 10.3 [foz_us] 7.4-10.4 Automated blood neutrophils/100 leukocytes 54 % 42-75 Automated blood lymphocytes/100 leukocytes 38 % 12-44 Blood monocytes/100 leukocytes 6 % 0-12 Automated blood eosinophils/100 leukocytes 1 % 0-10 Automated blood basophils/100 leukocytes 1 % 0-10 Blood neutrophils automated count (number/volume) 6.2 10*3 1.8-7.8 Blood lymphocytes automated count (number/volume) 4.4 10*3 1.0-4.0 Blood monocytes automated count (number/volume) 0.7 10*3 0.0- 1.0 Automated eosinophil count 0.2 10*3/uL 0.0-0.3 Automated blood basophil count (count/volume) 0.1 10*3/uL 0.0-0.1 Comprehensive metabolic panel - 01/14/18 21:29 Serum or plasma sodium measurement (moles/volume) 139 mmol/L 135-145 Serum or plasma potassium measurement (moles/volume) 4.2 mmol/L 3.6-5.0 Serum or plasma chloride measurement (moles/volume) 106 mmol/L 98-107 Carbon dioxide 21 mmol/L 21-32 Serum or plasma anion gap determination (moles/volume) 12 mmol/L 5-14 Serum or plasma urea nitrogen measurement (mass/volume) 15 mg/dL 7-18 Serum or plasma creatinine measurement (mass/volume) 1.02 mg/dL 0.60-1.30 Serum or plasma urea nitrogen/creatinine mass ratio 15 NRG Serum or plasma creatinine measurement with calculation of estimated glomerular filtration rate > NRG Serum or plasma glucose measurement (mass/volume) 110 mg/dL 70-105 Serum or plasma calcium measurement (mass/volume) 9.6 mg/dL 8.5-10.1 Serum or plasma total bilirubin measurement (mass/volume) 0.6 mg/dL 0.1-1.0 Serum or plasma alkaline phosphatase measurement (enzymatic activity/volume) 104 U/L 40-136 Serum or plasma aspartate aminotransferase measurement (enzymatic activity/volume) 26 U/L 5-34 Serum or plasma alanine aminotransferase measurement (enzymatic activity/volume) 42 U/L 0-55 Serum or plasma protein measurement (mass/volume) 7.9 g/dL 6.4-8.2 Serum or plasma albumin measurement (mass/volume) 4.3 g/dL 3.2-4.5 CMP - 03/25/18 14:45 GLUCOSE 107 mg/dL 65-99 UREA NITROGEN (BUN) 9 mg/dL 7-25 CREATININE 0.95 mg/dL 0.60-1.35 eGFR NON-AFR. AFGHAN 112 mL/min/1.73m2 > OR=60 eGFR 130 mL/min/1.73m2 > OR=60 BUN/CREATININE RATIO NOT APPLICABLE (calc) 6-22 SODIUM 141 mmol/L 135-146 POTASSIUM 4.3 mmol/L 3.5-5.3 CHLORIDE 108 mmol/L 98-110 CARBON DIOXIDE 24 mmol/L 20-31 CALCIUM 9.5 mg/dL 8.6-10.3 PROTEIN, TOTAL 7.0 g/dL 6.1-8.1 ALBUMIN 4.4 g/dL 3.6-5.1 GLOBULIN 2.6 g/dL (calc) 1.9-3.7 ALBUMIN/GLOBULIN RATIO 1.7 (calc) 1.0-2.5 BILIRUBIN, TOTAL 0.7 mg/dL 0.2-1.2 ALKALINE PHOSPHATASE 114 U/L 40-115 AST 27 U/L 10-40 ALT 35 U/L 9-46 CBC - 03/25/18 14:45 WHITE BLOOD CELL COUNT 9.9 Thousand/uL 3.8-10.8 RED BLOOD CELL COUNT 5.00 Million/uL 4.20-5.80 HEMOGLOBIN 15.6 g/dL 13.2-17.1 HEMATOCRIT 44.9 % 38.5-50.0 MCV 89.8 fL 80.0-100.0 MCH 31.2 pg 27.0-33.0 MCHC 34.7 g/dL 32.0-36.0 RDW 12.7 % 11.0-15.0 PLATELET COUNT 340 Thousand/uL 140-400 MPV 10.6 fL 7.5-12.5 ABSOLUTE NEUTROPHILS 5227 cells/uL 0129-8792 ABSOLUTE LYMPHOCYTES 3515 cells/uL 850-3900 ABSOLUTE MONOCYTES 772 cells/uL 200-950 ABSOLUTE EOSINOPHILS 307 cells/uL 15-500 ABSOLUTE BASOPHILS 79 cells/uL 0-200 NEUTROPHILS 52.8 % NRG LYMPHOCYTES 35.5 % NRG MONOCYTES 7.8 % NRG EOSINOPHILS 3.1 % NRG BASOPHILS 0.8 % NRG TSH - 03/25/18 14:45 TSH 0.74 mIU/L 0.40-4.50 Complete urinalysis with reflex to culture - 04/22/18 19:25 Urine color determination YELLOW NRG Urine clarity determination VERY CLOUDY NRG Urine pH measurement by test strip 5 5-9 Specific gravity of urine by test strip 1.020 1.016-1.022 Urine protein assay by test strip, semi-quantitative 1+ NEGATIVE Urine glucose detection by automated test strip NEGATIVE NEGATIVE Erythrocytes detection in urine sediment by light microscopy 1+ NEGATIVE Urine ketones detection by automated test strip NEGATIVE NEGATIVE Urine nitrite detection by test strip NEGATIVE NEGATIVE Urine total bilirubin detection by test strip NEGATIVE NEGATIVE Urine urobilinogen measurement by automated test strip (mass/volume) NORMAL NORMAL Urine leukocyte esterase detection by dipstick 1+ NEGATIVE Automated urine sediment erythrocyte count by microscopy (number/high power field) [HPF] NRG Automated urine sediment leukocyte count by microscopy (number/high power field) [HPF] NRG Bacteria detection in urine sediment by light microscopy MODERATE NRG Squamous epithelial cells detection in urine sediment by light microscopy 10-25 NRG Crystals detection in urine sediment by light microscopy NONE NRG Casts detection in urine sediment by light microscopy NONE NRG Mucus detection in urine sediment by light microscopy MODERATE NRG Complete urinalysis with reflex to culture YES NRG Bacterial urine culture - 04/22/18 19:25 Bacterial urine culture SEE COMMEN NRG COLONY COUNT . NRG Chlamydia DNA amp probe, urine - 04/22/18 19:25 Chlamydia DNA amp probe, urine Not Detected Not Detected Urine Neisseria gonorrhoeae DNA assay - 04/22/18 19:25 Gonorrhea amp DNA-urine Not Detected Not Detected Complete blood count (CBC) with automated white blood cell (WBC) differential - 04/22/18 19:30 Blood leukocytes automated count (number/volume) 15.0 10*3/uL 4.3-11.0 Blood erythrocytes automated count (number/volume) 5.10 10*6/uL 4.35-5.85 Venous blood hemoglobin measurement (mass/volume) 15.7 g/dL 13.3-17.7 Blood hematocrit (volume fraction) 45 % 40-54 Automated erythrocyte mean corpuscular volume 88 [foz_us] 80-99 Automated erythrocyte mean corpuscular hemoglobin (mass per erythrocyte) 31 pg 25-34 Automated erythrocyte mean corpuscular hemoglobin concentration measurement (mass/volume) 35 g/dL 32-36 Automated erythrocyte distribution width ratio 12.9 % 10.0- 14.5 Automated blood platelet count (count/volume) 301 10*3/uL 130-400 Automated blood platelet mean volume measurement 10.5 [foz_us] 7.4-10.4 Automated blood neutrophils/100 leukocytes 80 % 42-75 Automated blood lymphocytes/100 leukocytes 12 % 12-44 Blood monocytes/100 leukocytes 8 % 0-12 Automated blood eosinophils/100 leukocytes 0 % 0-10 Automated blood basophils/100 leukocytes 0 % 0-10 Blood neutrophils automated count (number/volume) 11.9 10*3 1.8-7.8 Blood lymphocytes automated count (number/volume) 1.9 10*3 1.0-4.0 Blood monocytes automated count (number/volume) 1.1 10*3 0.0- 1.0 Automated eosinophil count 0.0 10*3/uL 0.0-0.3 Automated blood basophil count (count/volume) 0.0 10*3/uL 0.0-0.1 PT panel in platelet poor plasma by coagulation assay - 04/22/18 19:30 Prothrombin time (PT) in platelet poor plasma by coagulation assay 13.4 s 12.2-14.7 INR in platelet poor plasma or blood by coagulation assay 1.0 0.8-1.4 Activated partial thromboplastin time (aPTT) in platelet poor plasma bycoagulation assay - 04/22/18 19:30 Activated partial thromboplastin time (aPTT) in platelet poor plasma bycoagulation assay 29 s 24-35 Blood lactic acid measurement (moles/volume) - 04/22/18 19:30 Blood lactic acid measurement (moles/volume) 1.39 mmol/L 0.50- 2.00 Comprehensive metabolic panel - 04/22/18 19:30 Serum or plasma sodium measurement (moles/volume) 138 mmol/L 135-145 Serum or plasma potassium measurement (moles/volume) 4.3 mmol/L 3.6-5.0 Serum or plasma chloride measurement (moles/volume) 104 mmol/L 98-107 Carbon dioxide 22 mmol/L 21-32 Serum or plasma anion gap determination (moles/volume) 12 mmol/L 5-14 Serum or plasma urea nitrogen measurement (mass/volume) 10 mg/dL 7-18 Serum or plasma creatinine measurement (mass/volume) 1.09 mg/dL 0.60-1.30 Serum or plasma urea nitrogen/creatinine mass ratio 9 NRG Serum or plasma creatinine measurement with calculation of estimated glomerular filtration rate > NRG Serum or plasma glucose measurement (mass/volume) 96 mg/dL 70-105 Serum or plasma calcium measurement (mass/volume) 9.5 mg/dL 8.5-10.1 Serum or plasma total bilirubin measurement (mass/volume) 1.0 mg/dL 0.1-1.0 Serum or plasma alkaline phosphatase measurement (enzymatic activity/volume) 101 U/L 40-136 Serum or plasma aspartate aminotransferase measurement (enzymatic activity/volume) 22 U/L 5-34 Serum or plasma alanine aminotransferase measurement (enzymatic activity/volume) 37 U/L 0-55 Serum or plasma protein measurement (mass/volume) 8.0 g/dL 6.4-8.2 Serum or plasma albumin measurement (mass/volume) 4.6 g/dL 3.2-4.5 Blood manual differential performed detection - 04/22/18 19:30 Blood monocytes/100 leukocytes 5 % NRG Manual blood segmented neutrophils/100 leukocytes 76 % NRG Blood band neutrophils/100 leukocytes 0 % NRG Manual blood lymphocytes/100 leukocytes 19 % NRG Manual eosinophils/100 leukocytes in nose 0 % NRG Manual blood basophils/100 leukocytes 0 % NR Blood erythrocyte morphology finding identification NORMAL [facility] Bacterial blood culture - 04/22/18 19:30 Bacterial blood culture NG [facility] Influenza virus A and B antigen detection - 04/22/18 19:47 FLU RESULT NEGATIVE FOR INFLUENZA A AND B ANTIGENS BY IA [facility] Bacterial blood culture - 04/22/18 19:50 Bacterial blood culture NG [facility] Tick identification panel - 04/22/18 20:25 Serum Ehrlichia chaffeensis IgG antibody detection 1:16 <1:16 Serum Ehrlichia chaffeensis IgM antibody detection <1:10 <1:10 Serum Rickettsia rickettsii IgG antibody assay (units/volume) < <1:16 [place] spotted fever panel < <1:10 Francisella tularensis antibody assay 1:20 [facility] LYME AB G M 0.05 % 0.00-0.89 Interpretation of Lyme disease antibody assay Negative Negative Complete blood count (CBC) with automated white blood cell (WBC) differential - 04/23/18 05:20 Blood leukocytes automated count (number/volume) 12.8 10*3/uL 4.3-11.0 Blood erythrocytes automated count (number/volume) 4.25 10*6/uL 4.35-5.85 Venous blood hemoglobin measurement (mass/volume) 13.7 g/dL 13.3-17.7 Blood hematocrit (volume fraction) 38 % 40-54 Automated erythrocyte mean corpuscular volume 90 [foz_us] 80-99 Automated erythrocyte mean corpuscular hemoglobin (mass per erythrocyte) 32 pg 25-34 Automated erythrocyte mean corpuscular hemoglobin concentration measurement (mass/volume) 36 g/dL 32-36 Automated erythrocyte distribution width ratio 12.8 % 10.0- 14.5 Automated blood platelet count (count/volume) 228 10*3/uL 130-400 Automated blood platelet mean volume measurement 10.3 [foz_us] 7.4-10.4 Automated blood neutrophils/100 leukocytes 73 % 42-75 Automated blood lymphocytes/100 leukocytes 20 % 12-44 Blood monocytes/100 leukocytes 7 % 0-12 Automated blood eosinophils/100 leukocytes 0 % 0-10 Automated blood basophils/100 leukocytes 0 % 0-10 Blood neutrophils automated count (number/volume) 9.4 10*3 1.8-7.8 Blood lymphocytes automated count (number/volume) 2.5 10*3 1.0-4.0 Blood monocytes automated count (number/volume) 0.9 10*3 0.0- 1.0 Automated eosinophil count 0.0 10*3/uL 0.0-0.3 Automated blood basophil count (count/volume) 0.0 10*3/uL 0.0-0.1 Comprehensive metabolic panel - 04/23/18 05:20 Serum or plasma sodium measurement (moles/volume) 138 mmol/L 135-145 Serum or plasma potassium measurement (moles/volume) 3.6 mmol/L 3.6-5.0 Serum or plasma chloride measurement (moles/volume) 107 mmol/L 98-107 Carbon dioxide 19 mmol/L 21-32 Serum or plasma anion gap determination (moles/volume) 12 mmol/L 5-14 Serum or plasma urea nitrogen measurement (mass/volume) 10 mg/dL 7-18 Serum or plasma creatinine measurement (mass/volume) 0.97 mg/dL 0.60-1.30 Serum or plasma urea nitrogen/creatinine mass ratio 10 NRG Serum or plasma creatinine measurement with calculation of estimated glomerular filtration rate > NRG Serum or plasma glucose measurement (mass/volume) 112 mg/dL 70-105 Serum or plasma calcium measurement (mass/volume) 8.8 mg/dL 8.5-10.1 Serum or plasma total bilirubin measurement (mass/volume) 0.9 mg/dL 0.1-1.0 Serum or plasma alkaline phosphatase measurement (enzymatic activity/volume) 79 U/L 40-136 Serum or plasma aspartate aminotransferase measurement (enzymatic activity/volume) 16 U/L 5-34 Serum or plasma alanine aminotransferase measurement (enzymatic activity/volume) 28 U/L 0-55 Serum or plasma protein measurement (mass/volume) 6.6 g/dL 6.4-8.2 Serum or plasma albumin measurement (mass/volume) 3.9 g/dL 3.2-4.5 Complete blood count (CBC) with automated white blood cell (WBC) differential - 04/24/18 05:18 Blood leukocytes automated count (number/volume) 10.8 10*3/uL 4.3-11.0 Blood erythrocytes automated count (number/volume) 4.29 10*6/uL 4.35-5.85 Venous blood hemoglobin measurement (mass/volume) 13.2 g/dL 13.3-17.7 Blood hematocrit (volume fraction) 39 % 40-54 Automated erythrocyte mean corpuscular volume 91 [foz_us] 80-99 Automated erythrocyte mean corpuscular hemoglobin (mass per erythrocyte) 31 pg 25-34 Automated erythrocyte mean corpuscular hemoglobin concentration measurement (mass/volume) 34 g/dL 32-36 Automated erythrocyte distribution width ratio 12.9 % 10.0- 14.5 Automated blood platelet count (count/volume) 232 10*3/uL 130-400 Automated blood platelet mean volume measurement 10.6 [foz_us] 7.4-10.4 Automated blood neutrophils/100 leukocytes 54 % 42-75 Automated blood lymphocytes/100 leukocytes 33 % 12-44 Blood monocytes/100 leukocytes 10 % 0-12 Automated blood eosinophils/100 leukocytes 2 % 0-10 Automated blood basophils/100 leukocytes 0 % 0-10 Blood neutrophils automated count (number/volume) 5.9 10*3 1.8-7.8 Blood lymphocytes automated count (number/volume) 3.6 10*3 1.0-4.0 Blood monocytes automated count (number/volume) 1.1 10*3 0.0- 1.0 Automated eosinophil count 0.2 10*3/uL 0.0-0.3 Automated blood basophil count (count/volume) 0.0 10*3/uL 0.0-0.1 Comprehensive metabolic panel - 04/24/18 05:18 Serum or plasma sodium measurement (moles/volume) 139 mmol/L 135-145 Serum or plasma potassium measurement (moles/volume) 4.3 mmol/L 3.6-5.0 Serum or plasma chloride measurement (moles/volume) 111 mmol/L 98-107 Carbon dioxide 21 mmol/L 21-32 Serum or plasma anion gap determination (moles/volume) 7 mmol/L 5-14 Serum or plasma urea nitrogen measurement (mass/volume) 8 mg/dL 7-18 Serum or plasma creatinine measurement (mass/volume) 0.86 mg/dL 0.60-1.30 Serum or plasma urea nitrogen/creatinine mass ratio 9 NRG Serum or plasma creatinine measurement with calculation of estimated glomerular filtration rate > NRG Serum or plasma glucose measurement (mass/volume) 108 mg/dL 70-105 Serum or plasma calcium measurement (mass/volume) 8.8 mg/dL 8.5-10.1 Serum or plasma total bilirubin measurement (mass/volume) 0.5 mg/dL 0.1-1.0 Serum or plasma alkaline phosphatase measurement (enzymatic activity/volume) 108 U/L 40-136 Serum or plasma aspartate aminotransferase measurement (enzymatic activity/volume) 23 U/L 5-34 Serum or plasma alanine aminotransferase measurement (enzymatic activity/volume) 30 U/L 0-55 Serum or plasma protein measurement (mass/volume) 6.3 g/dL 6.4-8.2 Serum or plasma albumin measurement (mass/volume) 3.7 g/dL 3.2-4.5 Magnesium - 04/24/18 05:18 Magnesium 2.2 mg/dL 1.8-2.4 CBC - 04/07/19 09:54 WHITE BLOOD CELL COUNT 10.2 Thousand/uL 3.8-10.8 RED BLOOD CELL COUNT 4.98 Million/uL 4.20-5.80 HEMOGLOBIN 15.3 g/dL 13.2-17.1 HEMATOCRIT 45.6 % 38.5-50.0 MCV 91.6 fL 80.0-100.0 MCH 30.7 pg 27.0-33.0 MCHC 33.6 g/dL 32.0-36.0 RDW 12.8 % 11.0-15.0 PLATELET COUNT 335 Thousand/uL 140-400 MPV 10.5 fL 7.5-12.5 ABSOLUTE NEUTROPHILS 5783 cells/uL 5437-0048 ABSOLUTE LYMPHOCYTES 3305 cells/uL 850-3900 ABSOLUTE MONOCYTES 755 cells/uL 200-950 ABSOLUTE EOSINOPHILS 255 cells/uL 15-500 ABSOLUTE BASOPHILS 102 cells/uL 0-200 NEUTROPHILS 56.7 % NRG LYMPHOCYTES 32.4 % NRG MONOCYTES 7.4 % NRG EOSINOPHILS 2.5 % NRG BASOPHILS 1.0 % NRG TSH - 04/07/19 09:54 TSH 0.78 mIU/L 0.40-4.50 A1C - 04/07/19 09:54 HEMOGLOBIN A1c 5.6 % of total Hgb <5.7 Encounters ACCT No. Visit Date/Time Discharge Status Pt. Type Provider Facility Loc./Unit Complaint 04/07/2019 09:40:00 04/07/2019 23:59:59 [facility] Outpatient MI QUINTERO APRN [facility] [id number] 04/07/2019 09:40:00 Document Registration [id number] 03/25/2018 14:40:00 Document Registration [id number] 03/05/2019 21:02:00 03/05/2019 21:33:00 DIS Emergency JULIO CESAR BERNARDO APRN [facility] ER SWOLLEN GUMS/BLEW NOSE AND BLOOD CAME OUT [id number] 09/23/2018 17:31:00 09/23/2018 19:50:00 DIS Emergency PATRICIA CASTELAN, JIA Sweeney [facility] ER WORK COMP,GROIN PAIN [id number] 04/22/2018 21:55:00 04/24/2018 14:10:00 DIS Inpatient YUMIKO GALARZA DO [facility] 4TH SEPSIS;UTI;RASH;N/V/D [id number] 01/26/2018 23:22:00 01/27/2018 02:30:00 DIS Emergency MESSI MCFARLANE DO [facility] ER ZAVALETA X 2WKS [id number] 01/14/2018 21:09:00 01/14/2018 22:40:00 DIS Emergency JULIO CESAR BERNARDO APRN [facility] ER HEAD PAIN;RIGHT SIDE FACE NUMBNESS
[2019-04-20 11:10] VITALS: BP_SYST 137; BP_SYST 140; BP_SYST 142; BP_DIAS 68; BP_DIAS 83; BP_DIAS 84
--- NOTE | 2019-04-20 11:30 | ED Syncope ---
General Stated Complaint: PASSED OUT AT WORK History of Present Illness Date Seen by Provider: Apr 20, 2019 Time Seen by Provider: 11:05 Initial Comments 23-year-old male presents for syncopal episode at work approximately one hour ago. 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 He felt nauseous and vomited one time prior to the syncopal episode. He had a previous similar incident this approximately 4 weeks ago and was evaluated at [facility]. He is currently being treated for a sinus infection with Sudafed and Augmentin. 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 He reports no nausea or headache at this time. 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 He reports a history of pre-hypertension, he is not treated with medication at this time. He took metoprolol in the past, but reports that his last refill there was not a prescription available and he hasn't followed up with his PCP. He has a family history of diabetes but no personal history of this. He reports over the last few weeks having difficulty sleeping and he is known to snore at night. He has never been told that he stops breathing when he's snoring. Timing/Prior Episodes: Recent History (times 1) Symptoms Prior to Episode: Nausea (and vomiting times 1) Precipitating Factors: Other (work) Loss of Consciousness: No Loss of Consciousness Current Symptoms: Back to Normal Allergies and Home Medications Allergies Coded Allergies: tree nut (Unverified Allergy, Unknown, 01/14/18) Home Medications Amoxicillin 500 Mg Capsule, 1,000 MG PO TID Prescribed by: JULIO CESAR BERNARDO on 03/05/192124 Doxycycline Monohydrate 100 Mg Tablet, 100 MG PO BID Prescribed by: YUMIKO GALARZA on 04/24/18 1338 Meloxicam 7.5 Mg Tablet, 7.5 MG PO BID, (Reported) Metoprolol Tartrate 25 Mg Tablet, 25 MG PO BID, (Reported) Prednisone 20 Mg Tab, 40 MG PO DAILY Prescribed by: JULIO CESAR BERNARDO on 03/05/192124 Patient Home Medication List Home Medication List Reviewed: Yes Review of Systems Constitutional: see HPI, malaise EENTM: see HPI, nose congestion, other (sinus tenderness) Respiratory: no symptoms reported, see HPI Cardiovascular: no symptoms reported, see HPI Gastrointestinal: no symptoms reported, see HPI Genitourinary: no symptoms reported, see HPI Musculoskeletal: no symptoms reported, see HPI Skin: no symptoms reported, see HPI Psychiatric/Neurological: No Symptoms Reported, See HPI All Other Systems Reviewed Negative Unless Noted: Yes Past Tsrantq-Ezjmre-Wcekra Hx Past Med/Social Hx: Reviewed Nursing Past Med/Soc Hx, Reviewed and Corrections made Patient Social History Alcohol Beverage of Choice: Beer Drug of Choice: MARIJUANA 4 WKS AGO Type Used: Smokeless Tobacco Recent Foreign Travel: No Contact w/Someone Who Travel: No Recent Hopitalizations: No Immunizations Up To Date Tetanus Booster (TDap): Unknown PED Vaccines UTD: Yes Seasonal Allergies Seasonal Allergies: No Past Medical History Surgeries: No Respiratory: No Currently Using CPAP: No Currently Using BIPAP: No Cardiac: Yes Hypertension Neurological: No Reproductive Disorders: No Genitourinary: No Gastrointestinal: No Musculoskeletal: No Endocrine: No HEENT: No Cancer: No Psychosocial: Yes Anxiety Integumentary: No Blood Disorders: No Adverse Reaction/Blood Tranf: No Family Medical History Patient reports no known family medical history. Physical Exam Vital Signs Vital Signs - First Documented 04/20/19 11:04 Temp 97.0 Pulse 98 Resp 18 B/P (MAP) 141/84 (103) Pulse Ox 99 O2 Delivery Room Air Capillary Refill : Height, Weight, BMI Height: 5'9.00" Weight: 325lbs. 6.0oz. 147.634482zk; 46.8 BMI Method:Stated General Appearance: No Apparent Distress, WD/WN HEENT: PERRL/EOMI, Normal ENT Inspection, Pharynx Normal, Other (trace tenderness over the maxillary sinuses, TMs with clear effusion, no erythema.) Neck: Full Range of Motion, Normal Inspection, Non Tender, Supple; No Lymphadenopathy (L), No Lymphadenopathy (R) Cardiovascular: Regular Rate, Rhythm, No Edema, No JVD, No Murmur, Normal Peripheral Pulses Respiratory: Chest Non Tender, Lungs Clear, Normal Breath Sounds Gastrointestinal: Normal Bowel Sounds, Non Tender, Soft; No Distended, No Guarding, No Hernia, No Mass, No Rebound, No Tenderness Extremities: Normal Capillary Refill, Normal Inspection, Normal Range of Motion, Non Tender, No Pedal Edema Neurologic/Psychiatric: Alert, Oriented x3, No Motor/Sensory Deficits, Normal Mood/Affect, 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 II-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 Norm as Tested Cranial Nerves: Normal Hearing, Normal Speech, PERRL Coordination/Gait: Normal Finger to Nose, Normal Gait, Negative Romberg's Sign Motor/Sensory: No Motor Deficit, No Sensory Deficit Skin: Normal Color, Warm/Dry Progress/Results/Core Measures Results/Orders Lab Results Laboratory Tests Test 04/20/19 11:16 04/20/19 11:25 04/20/19 11:33 Range/Units Glucometer 103 70-110 MG/DL White Blood Count 9.3 4.3-11.0 10^3/uL Red Blood Count 4.87 4.35-5.85 10^6/uL Hemoglobin 14.9 13.3-17.7 G/DL Hematocrit 44 40-54 % Mean Corpuscular Volume 90 80-99 FL Mean Corpuscular Hemoglobin 31 25-34 PG Mean Corpuscular Hemoglobin Concent 34 32-36 G/DL Red Cell Distribution Width 13.0 10.0-14.5 % Platelet Count 279 130-400 10^3/uL Mean Platelet Volume 10.2 7.4-10.4 FL Neutrophils (%) (Auto) 57 42-75 % Lymphocytes (%) (Auto) 36 12-44 % Monocytes (%) (Auto) 4 0-12 % Eosinophils (%) (Auto) 2 0-10 % Basophils (%) (Auto) 1 0-10 % Neutrophils # (Auto) 5.3 1.8-7.8 X 10^3 Lymphocytes # (Auto) 3.3 1.0-4.0 X 10^3 Monocytes # (Auto) 0.4 0.0-1.0 X 10^3 Eosinophils # (Auto) 0.2 0.0-0.3 10^3/uL Basophils # (Auto) 0.1 0.0-0.1 10^3/uL Sodium Level 140 135-145 MMOL/L Potassium Level 4.1 3.6-5.0 MMOL/L Chloride Level 104 98-107 MMOL/L Carbon Dioxide Level 26 21-32 MMOL/L Anion Gap 10 5-14 MMOL/L Blood Urea Nitrogen 12 7-18 MG/DL Creatinine 0.91 0.60-1.30 MG/DL Estimat Glomerular Filtration Rate > 60 BUN/Creatinine Ratio 13 Glucose Level 115 H 70-105 MG/DL Calcium Level 9.5 8.5-10.1 MG/DL Corrected Calcium 9.1 8.5-10.1 MG/DL Total Bilirubin 0.9 0.1-1.0 MG/DL Aspartate Amino Transf (AST/SGOT) 29 5-34 U/L Alanine Aminotransferase (ALT/SGPT) 41 0-55 U/L Alkaline Phosphatase 102 40-136 U/L Total Protein 7.4 6.4-8.2 GM/DL Albumin 4.5 3.2-4.5 GM/DL Urine Color YELLOW Urine Clarity CLEAR Urine pH 5 5-9 Urine Specific [place] 1.005 L 1.016-1.022 Urine Protein NEGATIVE NEGATIVE Urine Glucose (UA) NEGATIVE NEGATIVE Urine Ketones NEGATIVE NEGATIVE Urine Nitrite NEGATIVE NEGATIVE Urine Bilirubin NEGATIVE NEGATIVE Urine Urobilinogen NORMAL NORMAL MG/DL Urine Leukocyte Esterase NEGATIVE NEGATIVE Urine RBC (Auto) NEGATIVE NEGATIVE Urine RBC NONE /HPF Urine WBC 0-2 /HPF Urine Squamous Epithelial Cells 0-2 /HPF Urine Crystals NONE /LPF Urine Bacteria NEGATIVE /HPF Urine Casts NONE /LPF Urine Mucus NEGATIVE /LPF Urine Culture Indicated NO Urine Opiates Screen NEGATIVE NEGATIVE Urine Oxycodone Screen NEGATIVE NEGATIVE Urine Methadone Screen NEGATIVE NEGATIVE Urine Propoxyphene Screen NEGATIVE NEGATIVE Urine Barbiturates Screen NEGATIVE NEGATIVE Ur Tricyclic Antidepressants Screen NEGATIVE NEGATIVE Urine Phencyclidine Screen NEGATIVE NEGATIVE Urine Amphetamines Screen NEGATIVE NEGATIVE Urine Methamphetamines Screen NEGATIVE NEGATIVE Urine Benzodiazepines Screen NEGATIVE NEGATIVE Urine Cocaine Screen NEGATIVE NEGATIVE Urine Cannabinoids Screen NEGATIVE NEGATIVE My Orders Orders - MISSY DIMAS LEGAL NURSE CONSULTANT Cbc With Automated Diff (04/20/19 11:21) Comprehensive Metabolic Panel (04/20/19 11:21) Drug Screen Stat (Urine) (04/20/19 11:21) Ua Culture If Indicated (04/20/19 11:21) Ekg Tracing (04/20/19 11:21) Thyroid Analyzer (04/20/19 12:22) Vital Signs/I&O 04/20/19 04/20/19 04/20/19 11:04 11:10 12:25 Temp 97.0 97.0 Pulse 98 104 107 90 100 Resp 18 18 B/P (MAP) 141/84 (103) 137/83 (101) 133/58 (83) 140/68 (92) 142/84 (103) Pulse Ox 99 99 O2 Delivery Room Air Room Air Progress Progress Note : Time: 11:05 Progress Note Patient seen and evaluated, will obtain orthostatic vital signs, labs, and EKG. Patient taking oral hydration with no n/v, no indication for IV fluids at this time. Accucheck 103. 1125 Orthostatic VS essentially identical. No vertigo or tinnitus when changing positions. 1155 Labs all normal. Patient taking water, no further syncopal symptoms. Reviewed results with patient of labs and EKG. Will check Thyroid. Appt with Dr. Goldman for May 04. Discharge instructions and return precautions reviewed with the patient. All questions answered. Initial ECG Impression Date: Apr 20, 2019 Initial ECG Impression Time: 11:42 Initial ECG Rate: 97 Initial ECG Rhythm: Normal Sinus Initial ECG Intervals: Normal Initial ECG Intervals VT 152, QRSD 92, QT 368, QTc 468. [place] P 15, QRS 47, T 19. Initial ECG Impression: Normal Initial ECG Comparisson: No Previous ECG Available Comment Reviewed the EKG with Dr. Caceres, concurred with interpretation. Departure Impression Primary Impression: Near syncope Disposition: 01 HOME, SELF-CARE Condition: Improved Departure-Patient Inst. Decision time for Depature: 12:00 Referrals: [facility] [place] Primary Care Physician MI FERNÁNDEZ (Family) Primary Care Physician Surya GOLDMAN MD Patient Instructions: Syncope (Fainting) (DC) Add. Discharge Instructions: You have an appointment scheduled with Dr. Goldman on May 04 at 10:30 am, please call [phone] if you are unable to keep this appointment. The office is located [facility] in medical offices. Increase water intake. Finish your Augmentin and Pseudafed for the sinus infection. Follow up with Jerardo Fernández APRN next week, call for appointment. Consider resuming your Metoprolol. You may take Tylenol PM or Benadryl 25 mg, 1 at bed time. Eat meals at regularly scheduled times, combination of carbohydrates and protein. Return to emergency department for chest pain, difficulty breathing, syncopal episode, or new concerns. Work/School Note: Work Release Form Date Seen in the Emergency Department: Apr 20, 2019 Return to Work: Apr 21, 2019 Other Restrictions Listed Below: No standing on elevated surfaces (ladders, chairs, stools). Restrictions: Appt May 04 with Room Service Associate at 10:30 am. Copy Copies To 1: Surya GOLDMAN MD Copies To 2: LISA ORTIZ AMY ARNP Apr 20, 2019 11:30
[2019-04-20 11:32] LABS: BASOPHILS # (AUTO) 0.1 10^3/uL (0.0-0.1); BASOPHILS % (AUTO) 1 % (0-10); EOSINOPHILS # (AUTO) 0.2 10^3/uL (0.0-0.3); EOSINOPHILS % (AUTO) 2 % (0-10); HEMATOCRIT 44 % (40-54); HEMOGLOBIN 14.9 G/DL (13.3-17.7); LYMPHOCYTES # (AUTO) 3.3 X 10^3 (1.0-4.0); LYMPHOCYTES % (AUTO) 36 % (12-44); MEAN CORPUSCULAR HEMOGLOBIN 31 PG (25-34); MEAN CORPUSCULAR HGB CONC 34 G/DL (32-36); MEAN CORPUSCULAR VOLUME 90 FL (80-99); MEAN PLATELET VOLUME 10.2 FL (7.4-10.4); MONOCYTES # (AUTO) 0.4 X 10^3 (0.0-1.0); MONOCYTES % (AUTO) 4 % (0-12); NEUTROPHILS # (AUTO) 5.3 X 10^3 (1.8-7.8); NEUTROPHILS % (AUTO) 57 % (42-75); PLATELET COUNT 279 10^3/uL (130-400); WHITE BLOOD COUNT 9.3 10^3/uL (4.3-11.0)
[2019-04-20 11:48] LABS: BILIRUBIN,URINE NEGATIVE (NEGATIVE); CLARITY,URINE CLEAR; COLOR,URINE YELLOW; GLUCOSE, URINE (UA) NEGATIVE (NEGATIVE); KETONES,URINE NEGATIVE (NEGATIVE); LEUKOCYTE ESTERASE ,URINE NEGATIVE (NEGATIVE); NITRITE,URINE NEGATIVE (NEGATIVE); PH,URINE 5 (5-9); PROTEIN,URINE NEGATIVE (NEGATIVE); UROBILINOGEN,URINE NORMAL (NORMAL); WBC,URINE 0-2 /HPF
[2019-04-20 11:49] LABS: BACTERIA,URINE NEGATIVE /HPF; SQUAMOUS EPITHELIAL CELL,UR 0-2 /HPF
[2019-04-20 11:51] LABS: AMPHETAMINE SCREEN, URINE NEGATIVE (NEGATIVE); BARBITURATE SCREEN URINE NEGATIVE (NEGATIVE); BENZODIAZEPINES SCREEN URINE NEGATIVE (NEGATIVE); CANNABINOID SCREEN, URINE NEGATIVE (NEGATIVE); COCAINE SCREEN URINE NEGATIVE (NEGATIVE); METHADONE STAT NEGATIVE (NEGATIVE); METHAMPHETAMINE SCREEN URINE S NEGATIVE (NEGATIVE); OPIATE SCREEN URINE NEGATIVE (NEGATIVE); OXYCODONE STAT NEGATIVE (NEGATIVE); PROPOXYPHENE STAT NEGATIVE (NEGATIVE); TRICYCLIC ANTIDEPRESSANTS SCRE NEGATIVE (NEGATIVE)
[2019-04-20 11:52] LABS: ALANINE AMINOTRANSFERASE 41 U/L (0-55); ALBUMIN 4.5 GM/DL (3.2-4.5); ALKALINE PHOSPHATASE 102 U/L (40-136); BILIRUBIN,TOTAL 0.9 MG/DL (0.1-1.0); BUN/CREATININE RATIO 13; CALCIUM 9.5 MG/DL (8.5-10.1); CARBON DIOXIDE 26 MMOL/L (21-32); CHLORIDE 104 MMOL/L (98-107); CREATININE SERUM 0.91 MG/DL (0.60-1.30); GFR ESTIMATED > 60; GLUCOSE 115 MG/DL (70-105); POTASSIUM 4.1 MMOL/L (3.6-5.0); SODIUM 140 MMOL/L (135-145); TOTAL PROTEIN 7.4 GM/DL (6.4-8.2)
[2019-04-20 12:25] VITALS: BP 133/58
== END 2019-04-20 12:25 | disposition home or self-care (01) ==
LOC: EDUNIT# 10:57 → ER 10:58
DX: R55 Syncope and collapse (principal); I10 Essential (primary) hypertension; F41.9 Anxiety disorder, unspecified; F12.10 Cannabis abuse, uncomplicated; Z79.52 Long term (current) use of systemic steroids
CPT/HCPCS: 36415; 80053; 80306; 81000; 82962; 84443; 85025; 93005

== ENCOUNTER 2020-08-24 18:45 | Emergency (ER) | payer OTHER ==
[~2020-08-24] VITALS: Ht 175.2 cm; Wt 150.7 kg
[~2020-08-24 18:45] MED LIST changes: -DOXY100T19 PO; +DOXY100T31 PO
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
--- NOTE | 2020-08-24 19:39 | Diagnostic Imaging Report ---
INDICATION: Elbow injury. COMPARISON: None. EXAMINATION: Three views of the left elbow were obtained. FINDINGS: No fracture or dislocation. Articular surfaces are normal. No joint effusion. IMPRESSION: Negative left elbow. Dictated by: Dictated on workstation # [id number]
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
[2020-08-24] MEDS ORDERED: CYCL10TA9 PO (19:59)
[2020-08-24] MEDS ORDERED: NAPR500T8 PO (19:59)
[2020-08-24 20:08] VITALS: BP 149/87
== END 2020-08-24 20:08 | disposition home or self-care (01) ==
LOC: EDUNIT# 18:45 → ER 18:46
DX: S39.012A Strain of muscle, fascia and tendon of lower back, initial encounter (principal); S50.02XA Contusion of left elbow, initial encounter; E66.9 Obesity, unspecified; I10 Essential (primary) hypertension; R40.2410 Glasgow coma scale score 13-15, unspecified time; Z68.42 Body mass index [BMI] 45.0-49.9, adult; Z79.52 Long term (current) use of systemic steroids; V89.2XXA Person injured in unspecified motor-vehicle accident, traffic, initial encounter
CPT/HCPCS: 72131; 73080

== ENCOUNTER 2020-10-02 20:58 | Emergency (ER) | payer SELFPAY ==
[~2020-10-02 20:58] MED LIST changes: +CYCL10TA9 PO; +NAPR500T8 PO
== END 2020-10-02 22:57 | disposition left against medical advice (07) ==
LOC: EDUNIT# 20:58 → ER 21:00
DX: R06.02 Shortness of breath (principal); R05 Cough